=== PATIENT | male | born 1950 | race African-American/Black ===

== ENCOUNTER 2017-03-05 11:39 | Inpatient (IN) | payer MEDICARE, OTHER ==
[2017-03-05] MEDS ORDERED: ALBUTEROL SULFATE 2.5 MG/3 ML VIAL.NEB IH ONE (12:29)
[2017-03-05] MEDS ORDERED: ALBUTEROL SULFATE 2.5 MG/0.5 ML VIAL.NEB IH ONE (12:32)
--- NOTE | 2017-03-05 12:40 | ERNOTE ---
Medical Problem HPI - General Chief Complaint: General Assessment Time Seen by Provider: 03/05/17 12:15 Source: patient, family Exam Limitations: no limitations - Immun/Allergies/Home Medications Immunizations: IMMUNIZATION HX Immunizations Up to Date Yes History of Influenza Vaccine Yes Hx Pneumococcal Vaccination Yes Allergies/Adverse Reactions: Allergies No Known Allergies Allergy (Verified 02/25/16 05:20) Home Medications: HOME MEDICATIONS Atorvastatin Calcium 80 mg PO HS 10/19/15 [Last Taken Unknown] Etodolac [Etodolac (Lodine)] 500 mg PO BID 10/19/15 [Last Taken Unknown] Gabapentin [Neurontin] 300 mg PO BID 10/19/15 [Last Taken Unknown] Prazosin HCl [Minipress] 5 mg PO HS 10/19/15 [Last Taken Unknown] Sertraline HCl [Zoloft] 100 mg PO BID 10/19/15 [Last Taken Unknown] metFORMIN HCL [Glucophage] 500 mg PO BIDWM 10/19/15 [Last Taken Unknown] traZODone HCL [Trazodone HCl] 300 mg PO HS PRN 10/19/15 [Last Taken Unknown] Doxycycline Monohydrate 100 mg PO BID 02/25/16 [Last Taken Unknown] Hydroxychloroquine Sulfate [Plaquenil] 200 mg PO BID 02/25/16 [Last Taken Unknown] - History of Present History Narrative: Patient is here for fever and confusion. Over the last month patient was inpatient at a [place] mental facility for [facility]. While there about five days ago he started to develop a fever up to 102, was confused and fell once. The requested treatment and evaluation and he was started on levaquin and taken to the [place] ER two days ago and had test done which the told were normal. He also had intermittent vomiting and diarrhea. Yesterday he was discharged home. The patient was diagnosed with Non Hodgkins lymphome in 12/2015 and treated with five months of chemo, also has diagnosis of chronic viral infections, has been admitted here for multiple UTI's - Patient's Past Medical History Patient History - Medical: Anxiety, Diabetes Type 2, Depression, Obesity Patient History - Cardiac/Respiratory: No pertinent hx Patient History - Cancer: Non Hodgkins Lymphoma Patient History - Surgical Procedures: Other Patient History - Other: None - Family History Mother Family History - Medical: Father Family History - Medical: No pertinent hx Family History - Cardiac/Respiratory: No pertinent hx Sister Family History - Medical: No pertinent hx Family History - Cardiac/Respiratory: No pertinent hx Brother Family History - Medical: Family History - Cardiac/Respiratory: Myocardial Infarction - Social History Living Situations: spouse Abuse History: No History of abuse Psych History: Hx of Anxiety, Hx of Depression Alcohol Use: none Drug Use: none - Immunizations Immunizations Up to Date: Yes Hx Pneumococcal Vaccination: Yes History of Influenza Vaccine: Yes Physical Exam - Physical Exam General Appearance: Present: wd/wn, alert, no apparent distress, obese Eye Exam: Normal inspection: bilateral, PERRL: bilateral Ears, Nose, Throat: Present: normal ENT inspection, normal pharynx Neck: Present: normal inspection, nontender, supple Respiratory: Present: no respiratory distress, no accessory muscle use, chest nontender, decreased breath sounds - slightly, wheezing - few Cardiovascular/Chest: Present: regular rate, rhythm, no murmur Gastrointestinal/Abdominal: Present: normal bowel sounds, nontender, nondistended, soft Extremity Exam: Present: no edema Neurological Exam: Present: alert, oriented, normal mood/affect, no motor/ sensory deficits Skin Exam: Present: normal color, warm/dry ED Progress - Results and Orders Patient's Lab Results:: I have reviewed the patient's lab results. - Vital Signs Patient's Vital Signs:: I have reviewed the patient's vital signs. Vital Signs: Vital Signs 03/05/17 03/05/17 11:57 12:25 Temperature 36.7 C 36.8 C Pulse Rate 107 H 98 Respiratory 16 17 Rate Blood Pressure 124/69 133/88 O2 Sat by Pulse 87 L 92 Oximetry - EKG EKG: NSR, other - no acute findings EKG read: Interp. by me - X-Ray X-Ray #1 X-Ray: chest - no acute changes Interpretation: Reviewed by me - CT/Ultrasound CT/Ultrasound Narrative: CT head: ethmoid disease, no acute findings CT chest: no PE - Progress/Reassessment Chief Complaint: General Assessment Progress Note-Subjective: 03/05/17 15:45 discussed results with patient and family patient 92% on 4liters O2, when o2 is taken off O2 sat down to 83% discussed admission for UTI and hypoxemia 03/05/17 16:31 explained positive d-dimer, will get CT chest 03/05/17 19:13 discussed with Jalyn Mann (NRP) okay to admit, 03/05/17 19:25 discussed results with patient Departure - Departure Clinical Impression: Hypoxemia UTI (urinary tract infection) Qualifiers: Urinary tract infection type: site unspecified Hematuria presence: without hematuria Qualified Code(s): N39.0 - Urinary tract infection, site not specified Obesity Qualifiers: Obesity type: unspecified obesity type Obesity severity: morbid Qualified Code( s): E66.01 - Morbid (severe) obesity due to excess calories Mental status change Qualifiers: Altered mental status type: unspecified Qualified Code(s): R41.82 - Altered mental status, unspecified Disposition: [facility] Condition: Fair
[2017-03-05 12:51] LABS: Hematocrit 44.9 % (42.0-52.0); Mean Cell Volume 87.4 fl (78-100); Mean Corpuscular Hemoglobin 29.2 pg (27-31); Mean Corpuscular Hgb Conc 33.4 g/dl (32-36); Mean Platelet Volume 9.1 fl (6.0-9.5); Neutrophil # 3.4 K/mm3 (1.3-6.0); Neutrophil % 71.8 % (42-75.0); Platelet Count 115 K/mm3 (150-450); Red Blood Count 5.14 M/mm3 (4.7-6.0); Red Cell Distribution Width 13.1 % (11.5-14.0); White Blood Count 4.7 K/mm3 (4.0-10.5)
--- OUTSIDE RECORDS SUMMARY | 2017-03-05 13:08 | XMS REPORT | Continuity of Care Document ---
:1950 Demographics Phone Unavailable Preferred Language Unknown Marital Status Unknown Lutheran Affiliation Unknown Race Unknown Ethnic Group Unknown Author Organization [facility] ([facility]) Address [place] [address] Phone [phone] Care Team Providers Name Role Phone Unavailable Primary Care Provider Unavailable Source Comments This disclosure is being made pursuant to the Care Everywhere program, applicable federal and state laws, and may not contain all informaitonavailable regarding this patient.[facility] ([facility]) Active Allergies and Adverse Reactions Not on File Current Medications Not on file Active Problems Not on file Social History Tobacco Use Types Packs/Day Years Used Date Never Assessed Plan of Care Health Maintenance Due Date Last Done Comments HCV Screening 1950 Hepatitis B Vaccine (1 of 3 - Primary Series) 1950 Tdap Vaccine 1962 Lipid Disorder Screening 1969 Td Vaccine 1969 Colonoscopy 09/11/2001 Prostate Cancer Screening 2001 Zoster Vaccine 2011 Influenza Vaccine: Seasonal (#1) 07/01/2016 Pneumococcal Vaccine (1 of 2 - PCV13) 2016 Results from Last 3 Months Not on file
[2017-03-05 13:11] LABS: Troponin I 0.034 ng/ml (0.00-0.10)
[2017-03-05 13:14] LABS: Anion Gap 12.3 mmol/L (6.8-13.8); BUN/Creatinine Ratio 23.8 (9.0-21.6); Bilirubin, Total 0.3 mg/dL (0.0-1.1); Ca. Corrected For Albumin 8.9 mg/dL (8.4-10.2); Calcium * 8.4 mg/dL (7.9-10.9); Carbon Dioxide 27.1 mmol/L (24-32.6); Potassium 4.4 mmol/L (3.4-4.6); Total Protein 7.1 gm/dL (6.2-8.2)
[2017-03-05 15:10] LABS: Urine Bilirubin Negative (NEGATIVE); Urine Blood 250 /ul (NEGATIVE); Urine Ketone Negative (NEGATIVE); Urine Nitrite Negative (NEGATIVE); Urine Protein >=300 mg/dL (NEGATIVE); Urine Specific Gravity >=1.030 SP.GR. (1.005-1.030); Urine Urobilinogen Normal (NORMAL); Urine pH 5.5 pH (5.0-7.0)
[2017-03-05 15:28] LABS: Urine Appearance Slightly Cloudy; Urine Color Dark Yellow
[2017-03-05 15:29] LABS: Urine Bacteria 1+
--- OUTSIDE RECORDS SUMMARY | 2017-03-05 16:18 | XMS REPORT | Continuity of Care Document ---
:1950 Demographics Phone Unavailable Preferred Language Unknown Marital Status Unknown Mandaen Affiliation Unknown Race Unknown Ethnic Group Unknown Author Organization [facility] ([facility]) [place] [address] Phone [phone] Care Team Providers Name Role Phone Unavailable Primary Care Provider Unavailable Source Comments This disclosure is being made pursuant to the Care Everywhere program, applicable federal and state laws, and may not contain all informaitonavailable regarding this patient.[facility] ([facility]) Active Allergies and Adverse Reactions Not on [...]
--- OUTSIDE RECORDS SUMMARY | 2017-03-05 19:31 | XMS REPORT | Continuity of Care Document ---
:1950 Demographics Phone Unavailable Preferred Language Unknown Marital Status Unknown Sabianism Affiliation Unknown Race Unknown Ethnic Group Unknown Author Organization [facility] ([facility]) [place] [address] Phone [phone] Care Team Providers Name Role Phone Unavailable Primary Care Provider Unavailable Source Comments This disclosure is being made pursuant to the Care Everywhere program, applicable federal and state laws, and may not contain all informaitonavailable regarding this patient.[facility] ([facility]) Active Allergies and Adverse Reactions Not on [...]
[2017-03-05] MEDS ORDERED: ALBUTEROL SULFATE/IPRATROPIUM 3 ML NEBU IH PRN (21:23)
--- NOTE | 2017-03-05 21:27 | HP ---
Chief Complaint - Chief Complaint Date of Service: 03/05/17 Time of Service: 21:23 Chief Complaint: confusion History of Present Illness: Pt is a 66 year old male with a PMH significant for UTI, nonHodgkin lymphoma, PTSD, morbid obesity, Pt presented to the ER this evening with complaints of fever and confusion. Over the last month patient was inpatient at a [place] mental facility for PTSD. On 02/28 started fever up to 102*F and URI symptoms, he was also confused and fell once. He was started on Levaquin for presumed pneumonia. Friday was transferred to the ER for medical evaluation. Per his he has also had intermittent vomiting and diarrhea. Yesterday 03/04/17, he was discharged home. Flu screen was negative. Of note the patient was diagnosed with Non Hodgkins lymphoma in 12/2015 and treated with five months of chemo as well as has had Q virus and Bartonelis. Per pt was home for less than 12 hours had poor appetite, seemed "out of it", dizzy, more lethargic than normal. Pt has not had any of his medications since yesterday morning as they were not given to them at discharge. In the ER work up revealed: D-dimer was elevated, CT Chest was completed per protocol which was negative for PE, RUL and bilateral lower lobe atelectisis vs PN present.All other lab work was essentially negative. Pt was also found to be hypoxic at 83% on RA, following an albuterol breathing treatment pt was still noted to be hypoxic at 85%, he was placed on O2 and this quickly resolved. Pt will be admitted to observation for further work up and treatment of lethargy, hypoxia with presumed PN and UTI. - Patient's Past Medical History Patient History - Medical: Anxiety, Diabetes Type 2, Depression, Obesity, Osteoarthritis Patient History - Cardiac/Respiratory: No pertinent hx, Pneumonia, CPAP/BiPAP Home Use, Sleep Apnea Patient History - Cancer: Non Hodgkins Lymphoma Patient History - Surgical Procedures: No surgical history Patient History - Other: Chronic/Prophylactic ABX - Family History Mother Family History - Medical: Family History - Cancer: Bone Father Family History - Medical: No pertinent hx Family History - Cardiac/Respiratory: No pertinent hx Sister Family History - Medical: No pertinent hx Family History - Cardiac/Respiratory: No pertinent hx Family History - Cancer: Bone, Lung Brother Family History - Medical: Family History - Cardiac/Respiratory: Myocardial Infarction Family History - Cancer: Lung - Social History Living Situations: spouse Abuse History: No History of abuse Psych History: Hx of Anxiety, Hx of Depression, Hx of Psychiatric Tx Smoking Status: Former smoker Have you smoked in the past 12 months: Yes Do you dip or chew tobacco: No Smoking Stop Date: 02/17/17 Patient requests Smoking Cessation Consult: No Initiate information on Smoking Cessation: No Alcohol Use: none Drug Use: none - Immunizations Immunizations Up to Date: Yes Hx Pneumococcal Vaccination: Yes History of Influenza Vaccine: Yes Review Of Systems (GEN) - Review of Systems Generalized/Overall Review: Present: Weakness, Fatigue EENTM: Present: No Symptoms Reported Respiratory: Present: Cough, Shortness of Breath Cardiac: Present: No Symptoms Reported Abdominal: Present: Nausea, Diarrhea Genitourinary: Present: No Symptoms Reported Musculoskeletal: Present: No Symptoms Reported Neurological: Present: No Symptoms Reported Skin: Present: No Symptoms Reported Immunizations: IMMUNIZATION HX Immunizations Up to Date Yes History of Influenza Vaccine Yes Hx Pneumococcal Vaccination Yes Allergies/Adverse Reactions: Allergies Allergy/AdvReac Type Severity Reaction Status Date / Time No Known Allergies Allergy Verified 02/25/16 05:20 Home Medications: HOME MEDICATIONS Atorvastatin Calcium 80 mg PO HS 10/19/15 [Last Taken Unknown] Sertraline HCl [Zoloft] 100 mg PO BID 10/19/15 [Last Taken Unknown] metFORMIN HCL [Glucophage] 500 mg PO BIDWM 10/19/15 [Last Taken Unknown] traZODone HCL [Trazodone HCl] 300 mg PO HS PRN 10/19/15 [Last Taken Unknown] Hydroxychloroquine Sulfate [Plaquenil] 200 mg PO BID 02/25/16 [Last Taken Unknown] Doxycycline Hyclate [Morgidox] 100 mg PO BID 03/05/17 [Last Taken Unknown] Ergocalciferol [Calciferol] 50,000 units PO Q7D 03/05/17 [Last Taken Unknown] Meloxicam [Mobic] 15 mg PO DAILY 03/05/17 [Last Taken Unknown] Oxybutynin Chloride [Ditropan] 5 mg PO BID 03/05/17 [Last Taken Unknown] Tamsulosin HCl [Flomax] 0.4 mg PO DAILY 03/05/17 [Last Taken Unknown] hydrOXYzine HCL [Atarax] 25 mg PO BID PRN 03/05/17 [Last Taken Unknown] Exam - Exam Vital Signs: Vital Signs - Last Taken Temp 36.9 C 03/05/17 20:00 Pulse 97 03/05/17 20:00 Resp 20 03/05/17 20:00 BP 129/82 03/05/17 20:00 Pulse Ox 92 3L 03/05/17 20:00 Constitutional: Present: Alert, Oriented x3, Cooperative, Lethargic - pt drifts back to sleep quickly however will awaken and is appropriately oriented upon questioning., Morbidly obese ENT Exam: Present: normal ENT inspection Eye Exam: bilateral eye: normal inspection, PERRL Respiratory: Present: chest non-tender, no respiratory distress, decreased breath sounds, wheezing Cardiovascular/Chest: Present: normal peripheral pulses, regular rate, rhythm, no chest tenderness, no edema, no murmur Peripheral Pulses: dorsalis-pedis (R): 2+, dorsalis-pedis (L): 2+, radial (R): 2 +, radial (L): 2+ Abdomen: Present: Normal bowel sounds, soft, nontender, nondistended, obese Extremity: Present: normal range of motion, non-tender, normal inspection, no pedal edema, no calf tenderness, normal capillary refill Skin Exam: Present: normal color, warm/dry, no cyanosis Neurologic: Present: alert, normal mood/affect, oriented x 3 Appearance: Present: appropriate appearance, appropriate insight, neat Eye contact: Present: cooperative, good eye contact, normal speech Thoughts: Present: normal thought pattern, no apparent hallucination Diagnostic Studies: Laboratory Results Laboratory Tests 03/05/17 03/05/17 03/05/17 12:42 12:45 12:45 WBC 4.7 Hgb 15.0 Hct 44.9 Plt Count 115 L Neutrophils % 71.8 D-Dimer 2.54 H Sodium 138 Potassium 4.4 D Anion Gap 12.3 BUN 19 Creatinine 0.80 Lactic Acid, Venous Total Bilirubin 0.3 AST 106 H ALT 49 Alkaline Phosphatase 61 Troponin I 0.034 B-Natriuretic Peptide 155 Urine Nitrate Ur Leukocyte Esterase Urine Bacteria 03/05/17 03/05/17 12:45 15:04 WBC Hgb Hct Plt Count Neutrophils % D-Dimer Sodium Potassium Anion Gap BUN Creatinine Lactic Acid, Venous 0.9 Total Bilirubin AST ALT Alkaline Phosphatase Troponin I B-Natriuretic Peptide Urine Nitrate Negative Ur Leukocyte Esterase Negative Urine Bacteria 1+ H Assessment/Plan - Assessment/Plan (1) Hypoxemia Assessment: Possibly due to a combination of morbid obesity and sleep apnea. Will continue cpap at home settings. Place on continuous pulse ox over night. Obtain baseline ABG, may want to repeat in the am following being placed on CPAP if abnormal. -CPAP at night -Supplemental O2 to maintain stats >90% -Continuous pulse ox -ABG now -Duoneb treatments PRN Problem: Acute (2) Lethargy Assessment: Not clear etiology at this time. Could be from questionable PN seen on CT scan, however due to body habitus, likely atelectisis. Will need to obtain medical records from [place] in the am. Will check ABG to see if retaining Co2 as well as an ammonia level. -ABG -Obtain medical records from [place] -Ammonia level Problem: Acute (3) UTI (urinary tract infection) Assessment: UA with +1 bacteria present. Culture pending. Last urine grew ecoli, will start on IV Rocephin, will also cover for PN. Problem: Acute Qualifiers: Urinary tract infection type: site unspecified Hematuria presence: without hematuria Qualified Code(s): N39.0 - Urinary tract infection, site not specified (4) Obesity Problem: Acute Qualifiers: Obesity type: unspecified obesity type Obesity severity: morbid Qualified Code(s): E66.01 - Morbid (severe) obesity due to excess calories (5) Sleep apnea Assessment: Place on CPAP at home settings -CPAP at night Problem: Acute (6) Diabetes type 2, controlled Assessment: Stable at this time. Consistent carb diet, continue Metformin. Blood glucose checks ac/hs. -Accu checks ac/hs -Continue Metformin Problem: Chronic
[2017-03-06] MEDS: NORMAL SALINE 1,000 ML IV PRN ×3 (01:33→15:10)
[2017-03-06 05:45] LABS: Hemoglobin 14.4 gm/dL (13.5-18.0); Mean Cell Volume 88.3 fl (78-100); Mean Corpuscular Hemoglobin 29.6 pg (27-31); Mean Corpuscular Hgb Conc 33.5 g/dl (32-36); Mean Platelet Volume 10.1 fl (6.0-9.5); Platelet Count 103 K/mm3 (150-450); Red Blood Count 4.87 M/mm3 (4.7-6.0); White Blood Count 3.7 K/mm3 (4.0-10.5)
[2017-03-06 06:04] LABS: Total Cells Counted 100
[2017-03-06 06:05] LABS: Albumin * 2.7 gm/dl (3.4-5.0); Anion Gap 9.1 mmol/L (6.8-13.8); BUN/Creatinine Ratio 22.2 (9.0-21.6); Bilirubin, Total 0.4 mg/dL (0.0-1.1); Ca. Corrected For Albumin 8.7 mg/dL (8.4-10.2); Carbon Dioxide 31.1 mmol/L (24-32.6); Potassium 4.2 mmol/L (3.4-4.6); Total Protein 6.7 gm/dL (6.2-8.2)
[2017-03-06 06:22] LABS: Band 16 % (0-2.0); Lymphocyte 27 % (20-51); Monocyte 11 % (0-9); Neutrophil 46 % (42-75); Neutrophil # 1.7 K/mm3 (1.3-6.0); Platelet Estimate Normal (NORMAL)
[2017-03-06 06:23] LABS: Dohle Bodies 2+
[2017-03-06] MEDS ORDERED: ERGOCALCIFEROL 50000 UNIT TABLET PO SCH (09:00)
[2017-03-06] MEDS ORDERED: metFORMIN HCL 500 MG TABLET PO SCH (09:00)
[2017-03-06] MEDS ORDERED: TAMSULOSIN HCL 0.4 MG CAP.SR.24H PO SCH (09:00)
[2017-03-06] MEDS ORDERED: DOXYCYCLINE HYCLATE 100 MG TABLET PO SCH (09:00)
[2017-03-06] MEDS: OXYBUTYNIN CHLORIDE 5 MG TABLET PO SCH ×2 (09:25→20:42)
[2017-03-06] MEDS: MELOXICAM 15 MG TABLET PO SCH (09:25)
[2017-03-06] MEDS: SERTRALINE HCL 100 MG TABLET PO SCH ×2 (09:26→20:43)
[2017-03-06] MEDS: HYDROXYCHLOROQUINE SULFATE 200 MG TABLET PO SCH ×2 (09:26→20:42)
[2017-03-06] MEDS ORDERED: ONDANSETRON HCL/PF 2 MG/ML VIAL IV ONE (10:00)
[2017-03-06 10:29] LABS: Troponin I 0.062 ng/ml (0.00-0.10)
[2017-03-06] MEDS ORDERED: VANCOMYCIN HCL 2 GM in DEXTROSE 5 % IN WATER 500 ML IV ONE ×2 (11:30)
[2017-03-06] MEDS: LEVOFLOXACIN/D5W 750 MG in Premix Bag 1 BAG IV SCH (11:42)
[2017-03-06] MEDS: CEFEPIME HCL 2 GM in DEXTROSE 5 % IN WATER 100 ML IV SCH ×4 (11:51→22:40)
[2017-03-06] MEDS: SACCHAROMYCES BOULARDII 250 MG CAPSULE PO SCH ×2 (12:03→20:42)
[2017-03-06] MEDS: INSULIN REGULAR, HUMAN 100 UNITS/ML VIAL SC SCH ×3 (12:03→20:50)
[2017-03-06] MEDS ORDERED: NOREPINEPHRINE BITARTRATE 4 MG in DEXTROSE 5 % IN WATER 496 ML IV PRN ×2 (12:56)
[2017-03-06] MEDS: METHYLPREDNISOLONE SOD SUCC 60 MG in WATER FOR INJ.,BACTERIOSTATIC 0 ML IV SCH ×2 (16:42→22:37)
--- NOTE | 2017-03-06 18:15 | PN ---
Subjective - Date and Time Seen Date: 03/06/17 Time: 09:55 Subjective Narrative: Reed is a 66 year old male with a UTI, non-Hodgkin lymphoma with previous chemo 12/2015 for 5 months, morbid obesity, retirement prior smoker that quit 02/17, chronic Q fever and hx of sub-acute endocarditis that presented to the ER on 03/05/17 with c/o fever and confusion. fever up to 102. In the ER, pt was found to be 83% on RA - placed on 4L via NC - sats 94%. CT of the chest was done, which was negative for PE, but positive for pneumonia in the RUL, RLL and RLL vs atelectasis. pt admitted for respiratory failure, pneumonia, uti and further observation. ammonia level was checked and was wnl. c diff pending. abg unremarkable. pt was started on iv rocephin in the ER. Upon assessment this am at 0955, wbc decrease from wnl to low at 3.7. pt now has 16% bands. duoneb scheduled at [facility] 4 hours. premlim urine cult is neg. still on 4 liter via nc. ns at 100 ml/hr. heart tones very faint. pt denies cp and states mild dyspnea. given leukocytosis, lactic acid, procalcitonin, 2 set blood cultures and bnp were ordered. due to recent fevers of 102 rapid influenza was also ordered. [facility] dr. quiroz - changed abx to iv cefepine, iv levaquin. also added a 1 time dose of iv vanco. sputum culture ordered as well. Around 1230, went to reassess the patient, and bp in room showed sbp of 88 - ordered levophed drip to titrate to sbp >90. recheck of bp showed sbp 105 so levophed gtt was held and pharmacy was notified to hold gtt in case it was needed later. I also verbally ordered transfer to the scu but once bp was found to be higher I indicated that this was not needed since the levophed gtt was not needed. in addition, heart tones still faint so bedside echo was ordered. ekg was also done and was wnl. at this time, i was also notified that indicates pt is becoming more lethargic. pt indicates to me that he is become more short of breath. repeat abg show rise in co2 level. thus, bipap was ordered. prelim echo from dr quiroz shows no pericardial effusion and ef 45-50% but echo is hard to read due to pt's body habitus. Objective - Review of Systems Generalized/Overall Review: Reports: Weakness, Fatigue Respiratory: Reports: Shortness of Breath, Wheezing Abdominal: Reports: No Symptoms Reported Genitourinary Symptoms: Reports: No Symptoms Reported Musculoskeletal Complaints: Reports: No Symptoms Reported Neurological: Reports: Emotional Problems, Weakness Skin: Reports: No Symptoms Reported Endocrine: Reports: No Symptoms Reported Misc: All systems neg except as marked - Vitals Vitals: Last Vital Signs Temp 37.1 C 03/06/17 08:54 Pulse 90 03/06/17 13:00 Resp 20 03/06/17 14:00 BP 101/54 03/06/17 13:00 Pulse Ox 100 03/06/17 14:00 - Abnormal Lab Findings Abnormal Lab Findings: Abnormal Lab Results 03/06/17 Range/Units 14:55 pO2 64.6 L (83.0-108.0) mmHg Total CO2 26.9 H (19.0-24.0) mmol/L ABG O2 Sat (Measured) 92.5 L (94.0-98.0) % - EKG/Xray Findings EKG: NSR, nonspecific ST T wave chg EKG read: Interp. by me - Exam Constitutional: Present: Alert, Cooperative, Moderate distress, Lethargic, Morbidly obese ENT Exam: Present: hearing grossly normal, moist mucous membranes Neck: Present: full range of motion, supple Breasts: Present: Exam deferred Respiratory: Present: chest non-tender, respiratory distress, rhonchi, wheezing , expiration (prolonged) Cardiovascular/Chest: Present: no chest tenderness, other - faint heart tones, unable to detect if there is a murmur or not. Abdomen: Present: soft, nontender, nondistended, obese - very large abdomen /Rectal: Present: Exam deferred Extremity: Present: non-tender, normal inspection Skin Exam: Present: normal color, warm/dry, no cyanosis Neurologic: Present: alert. Absent: aphasia, facial droop Assessment/Plan - Problems/Diagnosis (1) Respiratory failure Problem: Acute Qualifiers: Chronicity: acute Respiratory failure complication: hypoxia Qualified Code(s): J96.01 - Acute respiratory failure with hypoxia Narrative: dropped to 83% in ra in ER. sats 94% on 4l nc on unit. unable to wean as pt starts to become very dyspenic when talking. likely causes for respiratory failure including combination of pneumonia, copd exac and acute systolic heart failure. echo shows ef of 45-50% and pt has no known history of heart failure in the past. report recent weight gain. no lower extremity edema and bnp normal but mildly elevated JVD noted. unable to obtain RVSP on echo due to pt' s body habitus. cpap /bipap per RT ventilator protocol. monitor abg and monitor for lethargy. cont pulse ox monitoring. cont scheduled duoneb treatments. (2) Leukocytosis Problem: Acute Qualifiers: Leukocytosis type: bandemia Qualified Code(s): D72.825 - Bandemia Narrative: likely due to pneumonia. UTI also suspected and culture is pending. pt currently on cefepime, levaquin and vanco. blood cultures also pending. sputum culture ordered and c diff sample ordered. check labs in the am and await final cultures. 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 wheezing and rhonchi persist in lung despite schedule duonebs. will add iv steroids. pt will need outpatient complete PFT. on cont O2 - watch sats closely. CO2 levels not critical but have trended up over the course of the day - cont bipap or cpap with O2 as needed per RT protocol. ABG per RT ventilator protocol. cont scheduled duonebs. (4) Hypoxemia Problem: Acute (5) Lethargy Problem: Acute (6) Obesity Problem: Chronic Qualifiers: Obesity type: unspecified obesity type Obesity severity: morbid Qualified Code(s): E66.01 - Morbid (severe) obesity due to excess calories (7) Sleep apnea Problem: Chronic Qualifiers: Sleep apnea type: unspecified type Qualified Code(s): G47.30 - Sleep apnea , unspecified (8) UTI (urinary tract infection) Problem: Acute Qualifiers: Urinary tract infection type: site unspecified Hematuria presence: without hematuria Qualified Code(s): N39.0 - Urinary tract infection, site not specified Narrative: urine culture currently pending and negative for any growth at this time. currently on iv cefepime, iv levaquin and one dose of iv vanco which will more than cover a UTI. await final culture results. (9) Diabetes type 2, controlled Problem: Chronic Qualifiers: Diabetes mellitus complication status: with unspecified complications Diabetes mellitus watermelon harvesting supervisor insulin use: without retirement use Qualified Code( s): E11.8 - Type 2 diabetes mellitus with unspecified complications Narrative: blood sugars currently controlled. checking ac/hs. sliding scale insulin as needed. held metformin today while checking to see if patient had elevated lactic acid as this can also elevate the lactic acid. may possibly restart in the am if patient continue to improve overnight. (10) Pneumonia Problem: Acute Qualifiers: Pneumonia type: due to unspecified organism Laterality: unspecified laterality Lung location: unspecified part of lung Qualified Code(s): J18.9 - Pneumonia, unspecified organism Narrative: Chest ct showed multi lobe pneumonia vs atelectsis. given severe hypoxemia / respiratory failure, unlikely to be atelectasis, especially in light of bandemia that was indicated on cbc this am. it is more likely that pt has multi lobular pneumonia. pt also has risk factors for drug resistant organism due to recent admission in inpatient unit, history of chemo within the last year , history of chronic q fever. sputum culture pending. will need to watch O2 sats closely. check labs in the am. (11) CHF (congestive heart failure) Problem: Acute Qualifiers: Congestive heart failure type: systolic Congestive heart failure chronicity : acute Qualified Code(s): I50.21 - Acute systolic (congestive) heart failure Narrative: no history of heart failure diagnosis in the past. bnp not elevated currently but does have a mildly elevated JVD and weight gain. IV fluids were decreased today to present further exacerbation. pt in mild systolic chf exacerbation but will see how patient does overnight, especially with his blood pressures running on the lower end, before ordering any lasix. monitor strict I&Os, monitor daily weights. pt will need chf teaching prior to discharge.
[2017-03-06] MEDS: TAMSULOSIN HCL 0.4 MG CAP.SR.24H PO SCH (20:41)
[2017-03-06] MEDS: ROSUVASTATIN CALCIUM 10 MG TABLET PO SCH (20:41)
[2017-03-06] MEDS ORDERED: ATORVASTATIN CALCIUM 40 MG TABLET PO SCH (21:00)
[2017-03-07] MEDS: METHYLPREDNISOLONE SOD SUCC 60 MG in WATER FOR INJ.,BACTERIOSTATIC 0 ML IV SCH ×4 (03:15→21:16)
[2017-03-07] MEDS: INSULIN REGULAR, HUMAN 100 UNITS/ML VIAL SC SCH ×4 (06:59→21:12)
[2017-03-07 07:58] LABS: Hemoglobin 14.1 gm/dL (13.5-18.0); Mean Cell Volume 86.6 fl (78-100); Mean Corpuscular Hemoglobin 29.1 pg (27-31); Mean Corpuscular Hgb Conc 33.6 g/dl (32-36); Mean Platelet Volume 9.5 fl (6.0-9.5); Neutrophil % 82.2 % (42-75.0); Platelet Count 133 K/mm3 (150-450); Red Blood Count 4.85 M/mm3 (4.7-6.0); Red Cell Distribution Width 12.7 % (11.5-14.0); White Blood Count 3.6 K/mm3 (4.0-10.5)
[2017-03-07 08:18] LABS: Albumin * 2.6 gm/dl (3.4-5.0); Anion Gap 11.6 mmol/L (6.8-13.8); BUN/Creatinine Ratio 24.7 (9.0-21.6); Bilirubin, Total 0.4 mg/dL (0.0-1.1); Ca. Corrected For Albumin 8.7 mg/dL (8.4-10.2); Calcium * 7.9 mg/dL (7.9-10.9); Carbon Dioxide 27.8 mmol/L (24-32.6); Potassium 4.4 mmol/L (3.4-4.6); Total Protein 6.7 gm/dL (6.2-8.2)
[2017-03-07] MEDS: HYDROXYCHLOROQUINE SULFATE 200 MG TABLET PO SCH ×2 (08:55→21:01)
[2017-03-07] MEDS: SACCHAROMYCES BOULARDII 250 MG CAPSULE PO SCH ×2 (08:55→21:00)
[2017-03-07] MEDS: OXYBUTYNIN CHLORIDE 5 MG TABLET PO SCH ×2 (08:55→21:00)
[2017-03-07] MEDS: MELOXICAM 15 MG TABLET PO SCH (08:55)
[2017-03-07] MEDS: SERTRALINE HCL 100 MG TABLET PO SCH ×2 (08:55→21:01)
[2017-03-07] MEDS: ALBUTEROL SULFATE/IPRATROPIUM 3 ML NEBU IH SCH ×3 (10:13→18:11)
[2017-03-07] MEDS: LEVOFLOXACIN/D5W 750 MG in Premix Bag 1 BAG IV SCH (10:29)
--- NOTE | 2017-03-07 11:30 | ECHO ---
This report is available in the EMR
[2017-03-07] MEDS ORDERED: FUROSEMIDE 10 MG/ML VIAL IV ONE (11:41)
[2017-03-07] MEDS: CEFEPIME HCL 2 GM in DEXTROSE 5 % IN WATER 100 ML IV SCH ×4 (12:38→22:11)
[2017-03-07] MEDS: VANCOMYCIN HCL 2 GM in DEXTROSE 5 % IN WATER 500 ML IV SCH ×4 (13:07→23:36)
[2017-03-07] MEDS: ENOXAPARIN SODIUM 40 MG/0.4 ML SYRG SC SCH (17:01)
[2017-03-07] MEDS: TAMSULOSIN HCL 0.4 MG CAP.SR.24H PO SCH (18:27)
--- NOTE | 2017-03-07 19:44 | PN ---
Subjective - Date and Time Seen Date: 03/07/17 Time: 17:20 Subjective Narrative: Reed is a 66 year old male with a UTI, non-Hodgkin lymphoma with previous chemo 12/2015 for 5 months, morbid obesity, snf prior smoker that quit 02/17, chronic Q fever and hx of sub-acute endocarditis that presented to the ER on 03/05/17 with c/o fever and confusion. fever up to 102. In the ER, pt was found to be 83% on RA - placed on 4L via NC - sats 94%. CT of the chest was done, which was negative for PE, but positive for pneumonia in the RUL, RLL and RLL vs atelectasis. pt admitted for respiratory failure, pneumonia, uti and further observation. ammonia level was checked and was wnl. c diff pending. abg unremarkable. pt was started on iv rocephin in the ER. Upon assessment this am at 0955, wbc decrease from wnl to low at 3.7. pt now has 16% bands. duoneb scheduled at [facility] 4 hours. premlim urine cult is neg. still on 4 liter via nc. ns at 100 ml/hr. heart tones very faint. pt denies cp and states mild dyspnea. given leukocytosis, lactic acid, procalcitonin, 2 set blood cultures and bnp were ordered. due to recent fevers of 102 rapid influenza was also ordered. [facility] with dr. quiroz - changed abx to iv cefepine, iv levaquin. also added a 1 time dose of iv vanco. sputum culture ordered as well. Around 1230, went to reassess the patient, and bp in room showed sbp of 88 - ordered levophed drip to titrate to sbp >90. recheck of bp showed sbp 105 so levophed gtt was held and pharmacy was notified to hold gtt in case it was needed later. I also verbally ordered transfer to the scu but once bp was found to be higher I indicated that this was not needed since the levophed gtt was not needed. in addition, heart tones still faint so bedside echo was ordered. ekg was also done and was wnl. at this time, i was also notified that indicates pt is becoming more lethargic. pt indicates to me that he is become more short of breath. repeat abg show rise in co2 level. thus, bipap was ordered. prelim echo from dr quiroz shows no pericardial effusion and ef 45-50% but echo is hard to read due to pt's body habitus. on 03/07/17 - overnight has improved. wbc stable. neutrophils 82. liver panel mildly elevated. weight up 1 kg in 24 hours. c diff neg. o2 needs less - clinically looks better than yesterday. currently on cefepime, levaquin iv. pt states he feels better than yesterday. Objective - Review of Systems Generalized/Overall Review: Reports: Fatigue EENTM: Reports: No Symptoms Reported Respiratory: Reports: Shortness of Breath Cardiac: Reports: No Symptoms Reported Abdominal: Reports: No Symptoms Reported Genitourinary Symptoms: Reports: No Symptoms Reported Musculoskeletal Complaints: Reports: No Symptoms Reported Neurological: Reports: No Symptoms Reported Skin: Reports: No Symptoms Reported Endocrine: Reports: No Symptoms Reported Misc: All systems neg except as marked - Vitals Vitals: Last Vital Signs Temp 35.9 C L 03/07/17 15:06 Pulse 77 03/07/17 18:21 Resp 18 03/07/17 18:21 BP 118/59 03/07/17 15:06 Pulse Ox 93 03/07/17 18:11 - Abnormal Lab Findings Abnormal Lab Findings: Abnormal Lab Results 03/07/17 03/07/17 03/07/17 Range/Units 07:50 07:50 07:50 WBC 3.6 L (4.0-10.5) K/mm3 Plt Count 133 L (150-450) K/mm3 Immature Gran % (Auto) 0.80 H (0.001-0.429) % Neutrophils % 82.2 H (42-75.0) % Lymphocytes % 12.5 L (20-51) % Lymphocytes # 0.5 L (1.5-3.5) k/mm3 Est GFR (Non-Af Amer) 139 H (60-130) mL/min BUN/Creatinine Ratio 24.7 H (9.0-21.6) Random Glucose 153 H D (70-110) mg/dL AST 178 H (0-48) U/L ALT 75 H (19-67) U/L Alkaline Phosphatase 47 L (50-170) U/L Albumin 2.6 L (3.4-5.0) gm/dl Procalcitonin Less than 0.05 L (0.05-0.50) ng/mL - Exam Constitutional: Present: Alert, Oriented x3, Cooperative, No distress ENT Exam: Present: hearing grossly normal Neck: Present: supple, normal inspection Respiratory: Present: rhonchi, wheezing Cardiovascular/Chest: Present: regular rate, rhythm, no chest tenderness, no edema - trace bilat lower extremity edema, JVD - mild Abdomen: Present: Normal bowel sounds, soft, nontender, obese /Rectal: Present: Exam deferred Extremity: Present: non-tender, normal inspection, no pedal edema Skin Exam: Present: normal color, warm/dry, no cyanosis Neurologic: Present: alert, oriented x 3 Assessment/Plan - Problems/Diagnosis (1) Respiratory failure Problem: Acute Qualifiers: Chronicity: acute Respiratory failure complication: hypoxia Qualified Code(s): J96.01 - Acute respiratory failure with hypoxia Narrative: o2 needs are less. cont iv steroids. cpap/bipap as needed. cont incentive spirometer. wean as able. (2) Leukocytosis Problem: Acute Qualifiers: Leukocytosis type: bandemia Qualified Code(s): D72.825 - Bandemia Narrative: stable for the last 24 hours, has not worsened. cont iv abx for the likely sources of infection. check labs in the am. (3) COPD exacerbation Problem: Acute Narrative: cont iv steroids and neb tx. pft complete outpt. (4) Hypoxemia Problem: Acute Narrative: improving. (5) Lethargy Problem: Acute Narrative: improving. (6) Obesity Problem: Chronic Qualifiers: Obesity type: unspecified obesity type Obesity severity: morbid Qualified Code(s): E66.01 - Morbid (severe) obesity due to excess calories (7) Sleep apnea Problem: Chronic Qualifiers: Sleep apnea type: unspecified type Qualified Code(s): G47.30 - Sleep apnea , unspecified (8) UTI (urinary tract infection) Problem: Acute Qualifiers: Urinary tract infection type: site unspecified Hematuria presence: without hematuria Qualified Code(s): N39.0 - Urinary tract infection, site not specified Narrative: awaiting urine culture final results. cont iv abx for now. (9) Diabetes type 2, controlled Problem: Chronic Qualifiers: Diabetes mellitus complication status: with unspecified complications Diabetes mellitus terminal manager insulin use: without terminal manager use Qualified Code( s): E11.8 - Type 2 diabetes mellitus with unspecified complications Narrative: restart oral meds tomorrow - sliding scale insulin as needed to cover. (10) Pneumonia Problem: Acute Qualifiers: Pneumonia type: due to unspecified organism Laterality: unspecified laterality Lung location: unspecified part of lung Qualified Code(s): J18.9 - Pneumonia, unspecified organism Narrative: continue iv abx, awaiting sputum culture results. (11) CHF (congestive heart failure) Problem: Acute Qualifiers: Congestive heart failure type: systolic Congestive heart failure chronicity : acute Qualified Code(s): I50.21 - Acute systolic (congestive) heart failure Narrative: ef 45-50%. weight in up in 24 hours. will order 20 mg iv lasix today to see how pt responds. unable to order more as pt has a bp that is on the lower side.
[2017-03-07] MEDS: ROSUVASTATIN CALCIUM 10 MG TABLET PO SCH (20:59)
[2017-03-07] MEDS: traZODone HCL 50 MG TABLET PO SCH (21:08)
[2017-03-08] MEDS: NORMAL SALINE 1,000 ML IV PRN (04:07)
[2017-03-08] MEDS: METHYLPREDNISOLONE SOD SUCC 60 MG in WATER FOR INJ.,BACTERIOSTATIC 0 ML IV SCH ×4 (04:15→23:08)
[2017-03-08 05:02] LABS: Hematocrit 40.5 % (42.0-52.0); Hemoglobin 13.5 gm/dL (13.5-18.0); Mean Cell Volume 86.4 fl (78-100); Mean Corpuscular Hemoglobin 28.8 pg (27-31); Mean Corpuscular Hgb Conc 33.3 g/dl (32-36); Mean Platelet Volume 9.5 fl (6.0-9.5); Neutrophil # 6.7 K/mm3 (1.3-6.0); Neutrophil % 84.4 % (42-75.0); Platelet Count 163 K/mm3 (150-450); Red Blood Count 4.69 M/mm3 (4.7-6.0); Red Cell Distribution Width 12.6 % (11.5-14.0)
[2017-03-08 05:21] LABS: Albumin * 2.6 gm/dl (3.4-5.0); Anion Gap 11.4 mmol/L (6.8-13.8); BUN/Creatinine Ratio 22.2 (9.0-21.6); Bilirubin, Total 0.3 mg/dL (0.0-1.1); Calcium * 8.2 mg/dL (7.9-10.9); Potassium 4.4 mmol/L (3.4-4.6); Total Protein 6.5 gm/dL (6.2-8.2)
[2017-03-08] MEDS: ALBUTEROL SULFATE/IPRATROPIUM 3 ML NEBU IH SCH ×4 (06:15→18:07)
[2017-03-08] MEDS: INSULIN REGULAR, HUMAN 100 UNITS/ML VIAL SC SCH ×4 (07:33→21:41)
[2017-03-08] MEDS ORDERED: FUROSEMIDE 10 MG/ML VIAL IV ONE (07:54)
[2017-03-08] MEDS: HYDROXYCHLOROQUINE SULFATE 200 MG TABLET PO SCH ×2 (08:40→20:39)
[2017-03-08] MEDS: SERTRALINE HCL 100 MG TABLET PO SCH ×2 (08:40→20:38)
[2017-03-08] MEDS: OXYBUTYNIN CHLORIDE 5 MG TABLET PO SCH ×2 (08:40→20:39)
[2017-03-08] MEDS: MELOXICAM 15 MG TABLET PO SCH (08:40)
[2017-03-08] MEDS: SACCHAROMYCES BOULARDII 250 MG CAPSULE PO SCH ×2 (08:40→20:38)
[2017-03-08] MEDS: CEFEPIME HCL 2 GM in DEXTROSE 5 % IN WATER 100 ML IV SCH ×4 (10:26→23:09)
[2017-03-08] MEDS: LEVOFLOXACIN/D5W 750 MG in Premix Bag 1 BAG IV SCH (11:30)
[2017-03-08] MEDS: VANCOMYCIN HCL 2 GM in DEXTROSE 5 % IN WATER 500 ML IV SCH ×4 (13:06→23:50)
[2017-03-08] MEDS: ENOXAPARIN SODIUM 40 MG/0.4 ML SYRG SC SCH (16:00)
--- NOTE | 2017-03-08 18:05 | PN ---
Subjective - Date and Time Seen Date: 03/08/17 Time: 16:45 Subjective Narrative: Reed is a 66 year old male with a UTI, non-Hodgkin lymphoma with previous chemo 12/2015 for 5 months, morbid obesity, jail prior smoker that quit 02/17, chronic Q fever and hx of sub-acute endocarditis that presented to the ER on 03/05/17 with c/o fever and confusion. fever up to 102. In the ER, pt was found to be 83% on RA - placed on 4L via NC - sats 94%. CT of the chest was done, which was negative for PE, but positive for pneumonia in the RUL, RLL and RLL vs atelectasis. pt admitted for respiratory failure, pneumonia, uti and further observation. ammonia level was checked and was wnl. c diff pending. abg unremarkable. pt was started on iv rocephin in the ER. Upon assessment this am at 0955, wbc decrease from wnl to low at 3.7. pt now has 16% bands. duoneb scheduled at [facility] 4 hours. premlim urine cult is neg. still on 4 liter via nc. ns at 100 ml/hr. heart tones very faint. pt denies cp and states mild dyspnea. given leukocytosis, lactic acid, procalcitonin, 2 set blood cultures and bnp were ordered. due to recent fevers of 102 rapid influenza was also ordered. [facility] with dr. quiroz - changed abx to iv cefepine, iv levaquin. also added a 1 time dose of iv vanco. sputum culture ordered as well. Around 1230, went to reassess the patient, and bp in room showed sbp of 88 - ordered levophed drip to titrate to sbp >90. recheck of bp showed sbp 105 so levophed gtt was held and pharmacy was notified to hold gtt in case it was needed later. I also verbally ordered transfer to the scu but once bp was found to be higher I indicated that this was not needed since the levophed gtt was not needed. in addition, heart tones still faint so bedside echo was ordered. ekg was also done and was wnl. at this time, i was also notified that indicates pt is becoming more lethargic. pt indicates to me that he is become more short of breath. repeat abg show rise in co2 level. thus, bipap was ordered. prelim echo from dr quiroz shows no pericardial effusion and ef 45-50% but echo is hard to read due to pt's body habitus. on 03/07/17 - overnight has improved. wbc stable. neutrophils 82. liver panel mildly elevated. weight up 1 kg in 24 hours. c diff neg. o2 needs less - clinically looks better than yesterday. currently on cefepime, levaquin iv. pt states he feels better than yesterday. on 03/08/17 - continues to improve. wbc wnl. neutrophils stable. bnp mildly elevated at 433. weight down 2 kg in 24 hours. O2 needs continue to decrease. using cpap at night and when asleep in chair. currently on cefepime, levaquin - have added vanco q12 hours as well. pt states that he continues to improve. Objective - Review of Systems Generalized/Overall Review: Reports: Fatigue EENTM: Reports: No Symptoms Reported Respiratory: Reports: Shortness of Breath, Other - crackles Cardiac: Reports: No Symptoms Reported Abdominal: Reports: No Symptoms Reported Genitourinary Symptoms: Reports: No Symptoms Reported Musculoskeletal Complaints: Reports: No Symptoms Reported Neurological: Reports: No Symptoms Reported Skin: Reports: No Symptoms Reported Endocrine: Reports: No Symptoms Reported Misc: All systems neg except as marked - Vitals Vitals: Last Vital Signs Temp 36.2 C L 03/08/17 15:03 Pulse 90 03/08/17 15:03 Resp 18 03/08/17 15:03 BP 118/67 03/08/17 15:03 Pulse Ox 83 L 03/08/17 15:03 - Abnormal Lab Findings Abnormal Lab Findings: Abnormal Lab Results 03/08/17 03/08/17 Range/Units 04:58 04:58 RBC 4.69 L (4.7-6.0) M/mm3 Hct 40.5 L (42.0-52.0) % Immature Gran % (Auto) 1.10 H (0.001-0.429) % Immature Gran # (Auto) 0.09 H (0.000-0.0310) K/mm3 Neutrophils % 84.4 H (42-75.0) % Lymphocytes % 7.4 L (20-51) % Neutrophils # 6.7 H (1.3-6.0) K/mm3 Lymphocytes # 0.6 L (1.5-3.5) k/mm3 BUN/Creatinine Ratio 22.2 H (9.0-21.6) Random Glucose 138 H (70-110) mg/dL AST 182 H (0-48) U/L ALT 106 H (19-67) U/L Alkaline Phosphatase 46 L (50-170) U/L B-Natriuretic Peptide 433 H (5-350) pg/mL Albumin 2.6 L (3.4-5.0) gm/dl - Exam Constitutional: Present: Alert, Oriented x3, Cooperative, No distress ENT Exam: Present: hearing grossly normal Neck: Present: supple, normal inspection Breasts: Present: Exam deferred Respiratory: Present: chest non-tender, rales, rhonchi, expiration (prolonged) Cardiovascular/Chest: Present: normal peripheral pulses, regular rate, rhythm, JVD - mild, edema - +1 lower extremity edema bilat Abdomen: Present: Normal bowel sounds, soft, nontender, obese /Rectal: Present: Exam deferred Extremity: Present: non-tender, normal inspection, no calf tenderness Skin Exam: Present: normal color, warm/dry, no cyanosis Neurologic: Present: alert, oriented x 3 Assessment/Plan - Problems/Diagnosis (1) Respiratory failure Problem: Acute Qualifiers: Chronicity: acute Respiratory failure complication: hypoxia Qualified Code(s): J96.01 - Acute respiratory failure with hypoxia Narrative: will need to walk pt with O2 monitor on and eval when pt is ready. cont to monitor. cpap/bipap as needed. (2) Leukocytosis Problem: Acute Qualifiers: Leukocytosis type: bandemia Qualified Code(s): D72.825 - Bandemia (3) COPD exacerbation Problem: Acute Narrative: iv steroid decreased to q 8 hours. cont neb tx. cont incentive spirometer. (4) Hypoxemia Problem: Acute (5) Lethargy Problem: Acute (6) Obesity Problem: Chronic Qualifiers: Obesity type: unspecified obesity type Obesity severity: morbid Qualified Code(s): E66.01 - Morbid (severe) obesity due to excess calories (7) Sleep apnea Problem: Chronic Qualifiers: Sleep apnea type: unspecified type Qualified Code(s): G47.30 - Sleep apnea , unspecified (8) UTI (urinary tract infection) Problem: Acute Qualifiers: Urinary tract infection type: site unspecified Hematuria presence: without hematuria Qualified Code(s): N39.0 - Urinary tract infection, site not specified (9) Diabetes type 2, controlled Problem: Chronic Qualifiers: Diabetes mellitus complication status: with unspecified complications Diabetes mellitus jail insulin use: without emt intermediate use Qualified Code( s): E11.8 - Type 2 diabetes mellitus with unspecified complications (10) Pneumonia Problem: Acute Qualifiers: Pneumonia type: due to unspecified organism Laterality: unspecified laterality Lung location: unspecified part of lung Qualified Code(s): J18.9 - Pneumonia, unspecified organism Narrative: improving clinical picture - pt continues to feel better and look better each day. cont iv abx. monitor labs. (11) CHF (congestive heart failure) Problem: Acute Qualifiers: Congestive heart failure type: systolic Congestive heart failure chronicity : acute Qualified Code(s): I50.21 - Acute systolic (congestive) heart failure Narrative: weight down 2 kg - give an additional 20 mg lasix iv today. check labs in am.
[2017-03-08] MEDS: traZODone HCL 50 MG TABLET PO SCH (20:38)
[2017-03-08] MEDS: ROSUVASTATIN CALCIUM 10 MG TABLET PO SCH (20:39)
[2017-03-08] MEDS: TAMSULOSIN HCL 0.4 MG CAP.SR.24H PO SCH (20:39)
[2017-03-09] MEDS: METHYLPREDNISOLONE SOD SUCC 60 MG in WATER FOR INJ.,BACTERIOSTATIC 0 ML IV SCH ×3 (04:09→20:28)
[2017-03-09] MEDS: ALBUTEROL SULFATE/IPRATROPIUM 3 ML NEBU IH SCH ×4 (06:07→18:12)
[2017-03-09] MEDS: INSULIN REGULAR, HUMAN 100 UNITS/ML VIAL SC SCH ×4 (07:32→22:53)
[2017-03-09 07:50] LABS: Hematocrit 44.1 % (42.0-52.0); Hemoglobin 14.9 gm/dL (13.5-18.0); Mean Corpuscular Hgb Conc 33.8 g/dl (32-36); Mean Platelet Volume 9.2 fl (6.0-9.5); Neutrophil # 7.8 K/mm3 (1.3-6.0); Neutrophil % 87.3 % (42-75.0); Platelet Count 211 K/mm3 (150-450); Red Blood Count 5.13 M/mm3 (4.7-6.0); Red Cell Distribution Width 12.5 % (11.5-14.0); White Blood Count 8.9 K/mm3 (4.0-10.5)
[2017-03-09 08:06] LABS: Albumin * 2.8 gm/dl (3.4-5.0); Anion Gap 10.2 mmol/L (6.8-13.8); BUN/Creatinine Ratio 22.8 (9.0-21.6); Bilirubin, Total 0.6 mg/dL (0.0-1.1); Ca. Corrected For Albumin 9.3 mg/dL (8.4-10.2); Calcium * 8.7 mg/dL (7.9-10.9); Potassium 4.2 mmol/L (3.4-4.6); Total Protein 7.1 gm/dL (6.2-8.2)
[2017-03-09] MEDS: SERTRALINE HCL 100 MG TABLET PO SCH ×2 (09:15→20:26)
[2017-03-09] MEDS: MELOXICAM 15 MG TABLET PO SCH (09:15)
[2017-03-09] MEDS: metFORMIN HCL 500 MG TABLET PO SCH ×2 (09:15→17:32)
[2017-03-09] MEDS: HYDROXYCHLOROQUINE SULFATE 200 MG TABLET PO SCH ×2 (09:15→20:27)
[2017-03-09] MEDS: OXYBUTYNIN CHLORIDE 5 MG TABLET PO SCH ×2 (09:15→20:28)
[2017-03-09] MEDS: SACCHAROMYCES BOULARDII 250 MG CAPSULE PO SCH ×2 (09:15→20:27)
[2017-03-09] MEDS: CEFEPIME HCL 2 GM in DEXTROSE 5 % IN WATER 100 ML IV SCH ×4 (10:18→22:46)
[2017-03-09] MEDS: LEVOFLOXACIN/D5W 750 MG in Premix Bag 1 BAG IV SCH (10:56)
[2017-03-09] MEDS ORDERED: VANCOMYCIN HCL LEVEL XX ONE (11:30)
[2017-03-09] MEDS: VANCOMYCIN HCL 2 GM in DEXTROSE 5 % IN WATER 500 ML IV SCH ×2 (12:53)
--- NOTE | 2017-03-09 15:00 | PN ---
Subjective - Date and Time Seen Date: 03/09/17 Time: 14:59 Subjective Narrative: Reed is a 66 year old male with a UTI, non-Hodgkin lymphoma with previous chemo 12/2015 for 5 months, morbid obesity, assisted prior smoker that quit 02/17, chronic Q fever and hx of sub-acute endocarditis that presented to the ER on 03/05/17 with c/o fever and confusion. fever up to 102. In the ER, pt was found to be 83% on RA - placed on 4L via NC - sats 94%. CT of the chest was done, which was negative for PE, but positive for pneumonia in the RUL, RLL and RLL vs atelectasis. pt admitted for respiratory failure, pneumonia, uti and further observation. ammonia level was checked and was wnl. c diff pending. abg unremarkable. pt was started on iv rocephin in the ER. Upon assessment this am at 0955, wbc decrease from wnl to low at 3.7. pt now has 16% bands. duoneb scheduled at [facility] 4 hours. premlim urine cult is neg. still on 4 liter via nc. ns at 100 ml/hr. heart tones very faint. pt denies cp and states mild dyspnea. given leukocytosis, lactic acid, procalcitonin, 2 set blood cultures and bnp were ordered. due to recent fevers of 102 rapid influenza was also ordered. [facility] with dr. quiroz - changed abx to iv cefepine, iv levaquin. also added a 1 time dose of iv vanco. sputum culture ordered as well. Around 1230, went to reassess the patient, and bp in room showed sbp of 88 - ordered levophed drip to titrate to sbp >90. recheck of bp showed sbp 105 so levophed gtt was held and pharmacy was notified to hold gtt in case it was needed later. I also verbally ordered transfer to the scu but once bp was found to be higher I indicated that this was not needed since the levophed gtt was not needed. in addition, heart tones still faint so bedside echo was ordered. ekg was also done and was wnl. at this time, i was also notified that indicates pt is becoming more lethargic. pt indicates to me that he is become more short of breath. repeat abg show rise in co2 level. thus, bipap was ordered. prelim echo from dr quiroz shows no pericardial effusion and ef 45-50% but echo is hard to read due to pt's body habitus. on 03/07/17 - overnight has improved. wbc stable. neutrophils 82. liver panel mildly elevated. weight up 1 kg in 24 hours. c diff neg. o2 needs less - clinically looks better than yesterday. currently on cefepime, levaquin iv. pt states he feels better than yesterday. on 03/08/17 - continues to improve. wbc wnl. neutrophils stable. bnp mildly elevated at 433. weight down 2 kg in 24 hours. O2 needs continue to decrease. using cpap at night and when asleep in chair. currently on cefepime, levaquin - have added vanco q12 hours as well. pt states that he continues to improve. on 03/09/17 - continues to improve, although slowly. blood cultures negative at 48 hours. final urine culture negative. final sputum culture negative. weight up at 171.2 kg - appears to be fluid overloaded but will get chest xray today to confirm. urine legionella neg. sats 92% on ra but desats with minimal activity. am labs pending. Objective - Review of Systems Generalized/Overall Review: Reports: Weakness, Fatigue EENTM: Reports: No Symptoms Reported Respiratory: Reports: Shortness of Breath Cardiac: Reports: No Symptoms Reported Abdominal: Reports: No Symptoms Reported Genitourinary Symptoms: Reports: No Symptoms Reported Musculoskeletal Complaints: Reports: No Symptoms Reported Neurological: Reports: No Symptoms Reported Skin: Reports: No Symptoms Reported Endocrine: Reports: No Symptoms Reported Misc: All systems neg except as marked - Vitals Vitals: Last Vital Signs Temp 36.8 C 03/09/17 10:43 Pulse 83 03/09/17 14:52 Resp 18 03/09/17 14:52 BP 114/70 03/09/17 10:43 Pulse Ox 94 03/09/17 14:52 - Abnormal Lab Findings Abnormal Lab Findings: Abnormal Lab Results 03/09/17 03/09/17 Range/Units 07:45 07:45 Immature Gran % (Auto) 1.70 H (0.001-0.429) % Immature Gran # (Auto) 0.15 H (0.000-0.0310) K/mm3 Neutrophils % 87.3 H (42-75.0) % Lymphocytes % 9.9 L (20-51) % Neutrophils # 7.8 H (1.3-6.0) K/mm3 Lymphocytes # 0.9 L (1.5-3.5) k/mm3 BUN/Creatinine Ratio 22.8 H (9.0-21.6) Random Glucose 163 H (70-110) mg/dL AST 173 H (0-48) U/L ALT 154 H (19-67) U/L Albumin 2.8 L (3.4-5.0) gm/dl - Exam Constitutional: Present: Alert, Oriented x3, Cooperative, No distress ENT Exam: Present: hearing grossly normal Neck: Present: supple Breasts: Present: Exam deferred Respiratory: Present: chest non-tender, decreased breath sounds, rales Cardiovascular/Chest: Present: normal peripheral pulses, regular rate, rhythm, JVD Abdomen: Present: Normal bowel sounds, soft, nontender, obese - morbid Extremity: Present: non-tender, normal inspection, lower extremity edema - mild bilat edema Skin Exam: Present: normal color, warm/dry, no cyanosis Neurologic: Present: alert, oriented x 3 Assessment/Plan - Problems/Diagnosis (1) Respiratory failure Problem: Acute Qualifiers: Chronicity: acute Respiratory failure complication: hypoxia Qualified Code(s): J96.01 - Acute respiratory failure with hypoxia Narrative: supplement cpap / bipap as needed. (2) Leukocytosis Problem: Acute Qualifiers: Leukocytosis type: bandemia Qualified Code(s): D72.825 - Bandemia (3) COPD exacerbation Problem: Acute Narrative: duoneb scheduled and prn available. teaching materials given to patient. (4) Hypoxemia Problem: Acute Narrative: improved when sitting but still hypoxic when walking. (5) Lethargy Problem: Resolved (6) Obesity Problem: Chronic Qualifiers: Obesity type: unspecified obesity type Obesity severity: morbid Qualified Code(s): E66.01 - Morbid (severe) obesity due to excess calories (7) Sleep apnea Problem: Chronic Qualifiers: Sleep apnea type: unspecified type Qualified Code(s): G47.30 - Sleep apnea , unspecified (8) UTI (urinary tract infection) Problem: Ruled-out Qualifiers: Urinary tract infection type: site unspecified Hematuria presence: without hematuria Qualified Code(s): N39.0 - Urinary tract infection, site not specified Narrative: urine culture final did not grow anything. (9) Diabetes type 2, controlled Problem: Chronic Qualifiers: Diabetes mellitus complication status: with unspecified complications Diabetes mellitus assisted insulin use: without assisted use Qualified Code( s): E11.8 - Type 2 diabetes mellitus with unspecified complications Narrative: since sepsis was ruled out - restart metformin. sliding scale as needed. (10) Pneumonia Problem: Suspected Qualifiers: Pneumonia type: due to unspecified organism Laterality: unspecified laterality Lung location: unspecified part of lung Qualified Code(s): J18.9 - Pneumonia, unspecified organism (11) CHF (congestive heart failure) Problem: Acute Qualifiers: Congestive heart failure type: systolic Congestive heart failure chronicity : acute Qualified Code(s): I50.21 - Acute systolic (congestive) heart failure Narrative: weight up. clinically appears to be fluid overloaded. give higher dose of lasix today. check labs in the am. check chest xray today. monitor closely.
[2017-03-09] MEDS ORDERED: FUROSEMIDE 10 MG/ML VIAL IV SCH (16:00)
[2017-03-09] MEDS: ENOXAPARIN SODIUM 40 MG/0.4 ML SYRG SC SCH (16:13)
[2017-03-09] MEDS: TAMSULOSIN HCL 0.4 MG CAP.SR.24H PO SCH (18:32)
[2017-03-09] MEDS ORDERED: FUROSEMIDE 10 MG/ML VIAL IV ONE (18:44)
[2017-03-09] MEDS ORDERED: SERTRALINE HCL 50 MG TABLET ONE (20:24)
[2017-03-09] MEDS: traZODone HCL 50 MG TABLET PO SCH (20:27)
[2017-03-09] MEDS: ROSUVASTATIN CALCIUM 10 MG TABLET PO SCH (20:28)
[2017-03-09] MEDS ORDERED: FUROSEMIDE 10 MG/ML VIAL ONE (22:41)
[2017-03-10] MEDS: VANCOMYCIN HCL 2 GM in DEXTROSE 5 % IN WATER 500 ML IV SCH ×6 (00:05→23:31)
[2017-03-10] MEDS ORDERED: ACETAMINOPHEN 325 MG TABLET PO PRN (04:47)
[2017-03-10] MEDS ORDERED: ACETAMINOPHEN 325 MG TABLET ONE (04:50)
[2017-03-10] MEDS: METHYLPREDNISOLONE SOD SUCC 60 MG in WATER FOR INJ.,BACTERIOSTATIC 0 ML IV SCH ×3 (04:55→20:50)
[2017-03-10] MEDS: ALBUTEROL SULFATE/IPRATROPIUM 3 ML NEBU IH SCH ×4 (06:05→18:05)
[2017-03-10 06:12] LABS: Hematocrit 43.4 % (42.0-52.0); Hemoglobin 14.5 gm/dL (13.5-18.0); Mean Cell Volume 86.3 fl (78-100); Mean Corpuscular Hemoglobin 28.8 pg (27-31); Mean Corpuscular Hgb Conc 33.4 g/dl (32-36); Mean Platelet Volume 9.1 fl (6.0-9.5); Platelet Count 251 K/mm3 (150-450); Red Blood Count 5.03 M/mm3 (4.7-6.0); Red Cell Distribution Width 12.8 % (11.5-14.0); White Blood Count 8.4 K/mm3 (4.0-10.5)
[2017-03-10 06:16] LABS: Total Cells Counted 100
[2017-03-10 06:29] LABS: Albumin * 2.6 gm/dl (3.4-5.0); Anion Gap 8.7 mmol/L (6.8-13.8); BUN/Creatinine Ratio 24.7 (9.0-21.6); Bilirubin, Total 0.5 mg/dL (0.0-1.1); Ca. Corrected For Albumin 9.3 mg/dL (8.4-10.2); Calcium * 8.5 mg/dL (7.9-10.9); Carbon Dioxide 31.5 mmol/L (24-32.6); Potassium 4.2 mmol/L (3.4-4.6); Total Protein 6.7 gm/dL (6.2-8.2)
[2017-03-10 06:35] LABS: Band 3 % (0-2.0); Immature Granulocyte 3 (0-1); Lymphocyte 4 % (20-51); Monocyte 1 % (0-9); Neutrophil 89 % (42-75); Neutrophil # 7.5 K/mm3 (1.3-6.0)
[2017-03-10 06:36] LABS: Platelet Estimate Normal (NORMAL); Toxic Granulation 2+
[2017-03-10 06:37] LABS: RBC Morphology Normal (NORMAL)
[2017-03-10] MEDS: INSULIN REGULAR, HUMAN 100 UNITS/ML VIAL SC SCH ×4 (07:03→21:04)
[2017-03-10] MEDS: MELOXICAM 15 MG TABLET PO SCH (08:51)
[2017-03-10] MEDS: SACCHAROMYCES BOULARDII 250 MG CAPSULE PO SCH ×2 (08:51→20:52)
[2017-03-10] MEDS: HYDROXYCHLOROQUINE SULFATE 200 MG TABLET PO SCH ×2 (08:51→20:53)
[2017-03-10] MEDS: OXYBUTYNIN CHLORIDE 5 MG TABLET PO SCH ×2 (08:51→20:52)
[2017-03-10] MEDS: metFORMIN HCL 500 MG TABLET PO SCH ×2 (08:52→16:06)
[2017-03-10] MEDS: SERTRALINE HCL 100 MG TABLET PO SCH ×2 (08:57→20:53)
[2017-03-10] MEDS: CEFEPIME HCL 2 GM in DEXTROSE 5 % IN WATER 100 ML IV SCH ×4 (09:56→21:45)
[2017-03-10] MEDS: ENOXAPARIN SODIUM 40 MG/0.4 ML SYRG SC SCH (16:06)
[2017-03-10] MEDS ORDERED: hydrOXYzine HCL 25 MG TABLET PO PRN (17:37)
--- NOTE | 2017-03-10 17:38 | PN ---
Subjective - Date and Time Seen Date: 03/10/17 Time: 17:37 Subjective Narrative: Reed is a 66 year old male with a UTI, non-Hodgkin lymphoma with previous chemo 12/2015 for 5 months, morbid obesity, residential prior smoker that quit 02/17, chronic Q fever and hx of sub-acute endocarditis that presented to the ER on 03/05/17 with c/o fever and confusion. fever up to 102. In the ER, pt was found to be 83% on RA - placed on 4L via NC - sats 94%. CT of the chest was done, which was negative for PE, but positive for pneumonia in the RUL, RLL and RLL vs atelectasis. pt admitted for respiratory failure, pneumonia, uti and further observation. ammonia level was checked and was wnl. c diff pending. abg unremarkable. pt was started on iv rocephin in the ER. Upon assessment this am at 0955, wbc decrease from wnl to low at 3.7. pt now has 16% bands. duoneb scheduled at [facility] 4 hours. premlim urine cult is neg. still on 4 liter via nc. ns at 100 ml/hr. heart tones very faint. pt denies cp and states mild dyspnea. given leukocytosis, lactic acid, procalcitonin, 2 set blood cultures and bnp were ordered. due to recent fevers of 102 rapid influenza was also ordered. [facility] with dr. quiroz - changed abx to iv cefepine, iv levaquin. also added a 1 time dose of iv vanco. sputum culture ordered as well. Around 1230, went to reassess the patient, and bp in room showed sbp of 88 - ordered levophed drip to titrate to sbp >90. recheck of bp showed sbp 105 so levophed gtt was held and pharmacy was notified to hold gtt in case it was needed later. I also verbally ordered transfer to the scu but once bp was found to be higher I indicated that this was not needed since the levophed gtt was not needed. in addition, heart tones still faint so bedside echo was ordered. ekg was also done and was wnl. at this time, i was also notified that indicates pt is becoming more lethargic. pt indicates to me that he is become more short of breath. repeat abg show rise in co2 level. thus, bipap was ordered. prelim echo from dr quiroz shows no pericardial effusion and ef 45-50% but echo is hard to read due to pt's body habitus. on 03/07/17 - overnight has improved. wbc stable. neutrophils 82. liver panel mildly elevated. weight up 1 kg in 24 hours. c diff neg. o2 needs less - clinically looks better than yesterday. currently on cefepime, levaquin iv. pt states he feels better than yesterday. on 03/08/17 - continues to improve. wbc wnl. neutrophils stable. bnp mildly elevated at 433. weight down 2 kg in 24 hours. O2 needs continue to decrease. using cpap at night and when asleep in chair. currently on cefepime, levaquin - have added vanco q12 hours as well. pt states that he continues to improve. on 03/09/17 - continues to improve, although slowly. blood cultures negative at 48 hours. final urine culture negative. final sputum culture negative. weight up at 171.2 kg - appears to be fluid overloaded but will get chest xray today to confirm. urine legionella neg. sats 92% on ra but desats with minimal activity. am labs pending. on 03/10/17 weight down. ALT up 154--> 172. not ambulating much. states he feels a little better after the iv lasix yesterday. Objective - Review of Systems Generalized/Overall Review: Reports: Weakness, Fatigue EENTM: Reports: No Symptoms Reported Respiratory: Reports: Shortness of Breath Cardiac: Reports: No Symptoms Reported Abdominal: Reports: No Symptoms Reported Genitourinary Symptoms: Reports: No Symptoms Reported Musculoskeletal Complaints: Reports: No Symptoms Reported Neurological: Reports: Weakness Skin: Reports: No Symptoms Reported Endocrine: Reports: No Symptoms Reported Misc: All systems neg except as marked - Vitals Vitals: Last Vital Signs Temp 36.7 C 03/10/17 15:59 Pulse 96 03/10/17 15:59 Resp 18 03/10/17 15:59 BP 116/66 03/10/17 15:59 Pulse Ox 92 03/10/17 15:59 - Abnormal Lab Findings Abnormal Lab Findings: Abnormal Lab Results 03/10/17 03/10/17 Range/Units 05:41 05:41 Neutrophils % (Manual) 89 H (42-75) % Band Neuts % (Manual) 3 H (0-2.0) % Lymphocytes % (Manual) 4 L (20-51) % Immature Granulocytes 3 H (0-1) Neutrophils # (Manual) 7.5 H (1.3-6.0) K/mm3 Lymphocytes # (Manual) 0.3 L (1.5-3.5) k/mm3 BUN/Creatinine Ratio 24.7 H (9.0-21.6) Random Glucose 150 H (70-110) mg/dL AST 149 H (0-48) U/L ALT 172 H (19-67) U/L Albumin 2.6 L (3.4-5.0) gm/dl - Exam Constitutional: Present: Alert, Oriented x3, Cooperative, No distress ENT Exam: Present: hearing grossly normal Neck: Present: supple Respiratory: Present: chest non-tender, no respiratory distress, decreased breath sounds, rales Cardiovascular/Chest: Present: normal peripheral pulses, regular rate, rhythm, no chest tenderness Abdomen: Present: Normal bowel sounds, soft, nondistended /Rectal: Present: Exam deferred Extremity: Present: normal range of motion, non-tender Skin Exam: Present: normal color, warm/dry, no cyanosis, other - clubbing noted to distal finger tips Neurologic: Present: alert, oriented x 3 Assessment/Plan Plan Narrative: patient admitted with respiratory failure. UTI ruled out with negative urine culture. diuresed well with iv lasix yesterday. will repeat iv lasix today as pt still clinically appears fluid overloaded. cont iv vanco and iv rocephin for pneumonia. alt still continues to climb. will stop additional home medications that are toxic to the liver. check labs in the am. ambulate patient as he is able. - Problems/Diagnosis (1) Respiratory failure Problem: Acute Qualifiers: Chronicity: acute Respiratory failure complication: hypoxia Qualified Code(s): J96.01 - Acute respiratory failure with hypoxia (2) Leukocytosis Problem: Acute Qualifiers: Leukocytosis type: bandemia Qualified Code(s): D72.825 - Bandemia (3) COPD exacerbation Problem: Acute (4) Hypoxemia Problem: Acute (5) Lethargy Problem: Acute (6) Obesity Problem: Chronic Qualifiers: Obesity type: unspecified obesity type Obesity severity: morbid Qualified Code(s): E66.01 - Morbid (severe) obesity due to excess calories (7) Sleep apnea Problem: Chronic Qualifiers: Sleep apnea type: unspecified type Qualified Code(s): G47.30 - Sleep apnea , unspecified (8) UTI (urinary tract infection) Problem: Ruled-out Qualifiers: Urinary tract infection type: site unspecified Hematuria presence: without hematuria Qualified Code(s): N39.0 - Urinary tract infection, site not specified (9) Diabetes type 2, controlled Problem: Chronic Qualifiers: Diabetes mellitus complication status: with unspecified complications Diabetes mellitus residential insulin use: without residential use Qualified Code( s): E11.8 - Type 2 diabetes mellitus with unspecified complications (10) Pneumonia Problem: Suspected Qualifiers: Pneumonia type: due to unspecified organism Laterality: unspecified laterality Lung location: unspecified part of lung Qualified Code(s): J18.9 - Pneumonia, unspecified organism (11) CHF (congestive heart failure) Problem: Acute Qualifiers: Congestive heart failure type: systolic Congestive heart failure chronicity : acute Qualified Code(s): I50.21 - Acute systolic (congestive) heart failure (12) Elevated liver enzymes Problem: Acute
[2017-03-10] MEDS ORDERED: FUROSEMIDE 10 MG/ML VIAL IV ONE (18:00)
[2017-03-10] MEDS: TAMSULOSIN HCL 0.4 MG CAP.SR.24H PO SCH (19:53)
[2017-03-10] MEDS: hydrOXYzine HCL 25 MG TABLET PO SCH (20:52)
[2017-03-11 05:35] LABS: Hematocrit 42.2 % (42.0-52.0); Hemoglobin 14.1 gm/dL (13.5-18.0); Mean Cell Volume 86.1 fl (78-100); Mean Corpuscular Hemoglobin 28.8 pg (27-31); Mean Corpuscular Hgb Conc 33.4 g/dl (32-36); Mean Platelet Volume 9.1 fl (6.0-9.5); Platelet Count 296 K/mm3 (150-450); Red Cell Distribution Width 12.6 % (11.5-14.0); White Blood Count 7.7 K/mm3 (4.0-10.5)
[2017-03-11 05:56] LABS: Albumin * 2.6 gm/dl (3.4-5.0); Anion Gap 11.3 mmol/L (6.8-13.8); BUN/Creatinine Ratio 25.9 (9.0-21.6); Bilirubin, Total 0.5 mg/dL (0.0-1.1); Ca. Corrected For Albumin 9.3 mg/dL (8.4-10.2); Calcium * 8.5 mg/dL (7.9-10.9); Potassium 4.3 mmol/L (3.4-4.6); Total Protein 6.5 gm/dL (6.2-8.2)
[2017-03-11 06:09] LABS: Total Cells Counted 100
[2017-03-11] MEDS: ALBUTEROL SULFATE/IPRATROPIUM 3 ML NEBU IH SCH ×4 (06:15→18:18)
[2017-03-11 06:19] LABS: Band 1 % (0-2.0); Immature Granulocyte 3 (0-1); Lymphocyte 9 % (20-51); Monocyte 2 % (0-9); Neutrophil 85 % (42-75); Neutrophil # 6.5 K/mm3 (1.3-6.0); Platelet Estimate Normal (NORMAL); RBC Morphology Normal (NORMAL)
[2017-03-11] MEDS: METHYLPREDNISOLONE SOD SUCC 60 MG in WATER FOR INJ.,BACTERIOSTATIC 0 ML IV SCH ×2 (06:32→11:16)
[2017-03-11] MEDS: INSULIN REGULAR, HUMAN 100 UNITS/ML VIAL SC SCH ×4 (07:40→20:54)
[2017-03-11] MEDS: metFORMIN HCL 500 MG TABLET PO SCH ×2 (09:05→17:40)
[2017-03-11] MEDS: SERTRALINE HCL 100 MG TABLET PO SCH ×2 (09:06→20:45)
[2017-03-11] MEDS: SACCHAROMYCES BOULARDII 250 MG CAPSULE PO SCH ×2 (09:06→20:45)
[2017-03-11] MEDS: HYDROXYCHLOROQUINE SULFATE 200 MG TABLET PO SCH ×2 (09:06→20:45)
[2017-03-11] MEDS: OXYBUTYNIN CHLORIDE 5 MG TABLET PO SCH ×2 (09:06→20:46)
[2017-03-11] MEDS: CEFEPIME HCL 2 GM in DEXTROSE 5 % IN WATER 100 ML IV SCH ×2 (09:56)
[2017-03-11] MEDS: VANCOMYCIN HCL 2 GM in DEXTROSE 5 % IN WATER 500 ML IV SCH ×2 (11:16)
[2017-03-11] MEDS: ENOXAPARIN SODIUM 40 MG/0.4 ML SYRG SC SCH (17:39)
--- NOTE | 2017-03-11 18:01 | PN ---
Subjective - Date and Time Seen Date: 03/11/17 Time: 10:30 Subjective Narrative: Patient seen and examined at bedside. Patient states he is feeling about the same as yesterday. No new issues or concerns. Still SOB. Easily falls asleep. Objective - Review of Systems Generalized/Overall Review: Reports: Fatigue EENTM: Reports: No Symptoms Reported Respiratory: Reports: Cough, Shortness of Breath Cardiac: Reports: No Symptoms Reported. Denies: Chest Pain Abdominal: Reports: No Symptoms Reported Genitourinary Symptoms: Reports: No Symptoms Reported Musculoskeletal Complaints: Reports: No Symptoms Reported Neurological: Reports: No Symptoms Reported Skin: Reports: No Symptoms Reported Endocrine: Reports: No Symptoms Reported Misc: All systems neg except as marked - Vitals Vitals: Last Vital Signs Temp 36.6 C 03/11/17 14:27 Pulse 92 03/11/17 14:27 Resp 23 H 03/11/17 14:27 BP 115/74 03/11/17 14:27 Pulse Ox 96 03/11/17 14:27 - Abnormal Lab Findings Abnormal Lab Findings: Abnormal Lab Results 03/11/17 03/11/17 Range/Units 05:00 05:00 Neutrophils % (Manual) 85 H (42-75) % Lymphocytes % (Manual) 9 L (20-51) % Immature Granulocytes 3 H (0-1) Neutrophils # (Manual) 6.5 H (1.3-6.0) K/mm3 Lymphocytes # (Manual) 0.7 L (1.5-3.5) k/mm3 BUN/Creatinine Ratio 25.9 H (9.0-21.6) Random Glucose 158 H (70-110) mg/dL AST 112 H (0-48) U/L ALT 172 H (19-67) U/L Albumin 2.6 L (3.4-5.0) gm/dl - Exam Constitutional: Present: Alert, Oriented x3, Cooperative, No distress, Morbidly obese ENT Exam: Present: hearing grossly normal, moist mucous membranes Respiratory: Present: no respiratory distress, no accessory muscle use, rhonchi , other - Bilateral rhonchi, especially at bases Cardiovascular/Chest: Present: other - Difficult to thoroughly assess secondary to body habitus; however, RRR and no murmurs noted Abdomen: Present: soft, nontender, obese Extremity: Present: normal inspection Skin Exam: Present: warm/dry, no cyanosis Neurologic: Present: alert, normal mood/affect, oriented x 3 Appearance: Present: appropriate appearance, appropriate insight Eye contact: Present: cooperative, good eye contact Thoughts: Present: normal thought pattern, no apparent hallucination Assessment/Plan Plan Narrative: Change to PO antibiotics. Change to PO steroids. Restart doxycycline (continue hydroxychloroquine) for chronic Q fever. Continue BiPAP at all times while sleeping, even while napping during the day. Patient likely has obesity hypoventilation syndrome. Patient may benefit from transfer to a facility with cardiology and pulmonology services if no improvement over the next 24-48 hours. Patient may also benefit from a right heart cath for further evaluation. - Problems/Diagnosis (1) Morbid obesity Problem: Acute (2) Obesity hypoventilation syndrome Problem: Acute (3) COPD exacerbation Problem: Acute (4) Hypoxemia Problem: Acute (5) Respiratory failure Problem: Acute Qualifiers: Chronicity: acute Respiratory failure complication: hypoxia Qualified Code(s): J96.01 - Acute respiratory failure with hypoxia (6) Sleep apnea Problem: Chronic Qualifiers: Sleep apnea type: unspecified type Qualified Code(s): G47.30 - Sleep apnea , unspecified (7) Pneumonia Problem: Acute Qualifiers: Pneumonia type: due to unspecified organism Laterality: unspecified laterality Lung location: unspecified part of lung Qualified Code(s): J18.9 - Pneumonia, unspecified organism
[2017-03-11] MEDS: TAMSULOSIN HCL 0.4 MG CAP.SR.24H PO SCH (18:38)
[2017-03-11] MEDS: DOXYCYCLINE HYCLATE 100 MG TABLET PO SCH (20:45)
[2017-03-11] MEDS: CEFDINIR 300 MG CAPSULE PO SCH (20:45)
[2017-03-11] MEDS: hydrOXYzine HCL 25 MG TABLET PO SCH (20:46)
[2017-03-11] MEDS ORDERED: ALBUTEROL SULFATE 2.5 MG/3 ML VIAL.NEB IH ONE ×2 (21:43→21:45)
[2017-03-11] MEDS ORDERED: ALBUTEROL SULFATE/IPRATROPIUM 3 ML NEBU IH PRN (22:02)
[2017-03-12] MEDS: ALBUTEROL SULFATE/IPRATROPIUM 3 ML NEBU IH SCH ×3 (05:50→14:35)
[2017-03-12] MEDS: INSULIN REGULAR, HUMAN 100 UNITS/ML VIAL SC SCH ×2 (06:48→11:21)
[2017-03-12] MEDS ORDERED: AZITHROMYCIN 250 MG TABLET PO SCH (09:00)
[2017-03-12] MEDS ORDERED: predniSONE 20 MG TABLET PO SCH (09:00)
[2017-03-12] MEDS: OXYBUTYNIN CHLORIDE 5 MG TABLET PO SCH (09:59)
[2017-03-12] MEDS: metFORMIN HCL 500 MG TABLET PO SCH (09:59)
[2017-03-12] MEDS: DOXYCYCLINE HYCLATE 100 MG TABLET PO SCH (10:00)
[2017-03-12] MEDS: SACCHAROMYCES BOULARDII 250 MG CAPSULE PO SCH (10:00)
[2017-03-12] MEDS: CEFDINIR 300 MG CAPSULE PO SCH (10:01)
[2017-03-12] MEDS: SERTRALINE HCL 100 MG TABLET PO SCH (10:02)
[2017-03-12] MEDS: HYDROXYCHLOROQUINE SULFATE 200 MG TABLET PO SCH (10:02)
[2017-03-12 10:09] VITALS: BP 110/64
[2017-03-12] MEDS ORDERED: VANCOMYCIN HCL LEVEL XX ONE (11:30)
--- NOTE | 2017-03-12 15:07 | PN ---
Subjective - Date and Time Seen Date: 03/12/17 Time: 08:45 Subjective Narrative: Patient seen and examined at bedside. Patient states he is feeling about the same as yesterday and continues to be short of breath. Overnight and this AM, patient remains hypoxic. Easily falls asleep. Objective - Review of Systems Generalized/Overall Review: Reports: Fatigue EENTM: Reports: No Symptoms Reported Respiratory: Reports: Cough, Shortness of Breath Cardiac: Reports: No Symptoms Reported Abdominal: Reports: No Symptoms Reported Genitourinary Symptoms: Reports: No Symptoms Reported Musculoskeletal Complaints: Reports: No Symptoms Reported Neurological: Reports: No Symptoms Reported Skin: Reports: No Symptoms Reported Endocrine: Reports: No Symptoms Reported Misc: All systems neg except as marked - Vitals Vitals: Last Vital Signs Temp 36.6 C 03/12/17 10:07 Pulse 78 03/12/17 14:44 Resp 22 H 03/12/17 14:44 BP 110/64 03/12/17 10:07 Pulse Ox 98 03/12/17 14:35 - Abnormal Lab Findings Abnormal Lab Findings: Abnormal Lab Results 03/12/17 Range/Units 09:21 pO2 45.8 L (83.0-108.0) mmHg HCO3 30.0 H (21.0-28.0) mmol/L Total CO2 31.3 H (19.0-24.0) mmol/L Base Excess 5.8 H (-2.0-3.0) mmol/L ABG pH 7.47 H (7.35-7.45) ABG O2 Sat (Measured) 84.5 L (94.0-98.0) % - Exam Constitutional: Present: Alert, Oriented x3, Cooperative, No distress, Morbidly obese ENT Exam: Present: hearing grossly normal, moist mucous membranes Respiratory: Present: no respiratory distress, no accessory muscle use, other - Bilateral rhonchi, most notable at bases Cardiovascular/Chest: Present: regular rate, rhythm Abdomen: Present: soft, nontender, obese Extremity: Present: normal inspection Skin Exam: Present: warm/dry Neurologic: Present: alert, oriented x 3 Eye contact: Present: cooperative Assessment/Plan Plan Narrative: ABG ordered this AM. Patient likely has obesity hypoventilation syndrome. Patient may benefit from transfer to a facility with cardiology and pulmonology services . Patient may also benefit from a right heart cath for further evaluation. This was discussed with the patient and he is agreeable to transfer. - Problems/Diagnosis (1) Morbid obesity Problem: Acute (2) Obesity hypoventilation syndrome Problem: Acute (3) COPD exacerbation Problem: Acute (4) Hypoxemia Problem: Acute (5) Respiratory failure Problem: Acute Qualifiers: Chronicity: acute Respiratory failure complication: hypoxia Qualified Code(s): J96.01 - Acute respiratory failure with hypoxia (6) Sleep apnea Problem: Chronic Qualifiers: Sleep apnea type: unspecified type Qualified Code(s): G47.30 - Sleep apnea , unspecified (7) Pneumonia Problem: Acute Qualifiers: Pneumonia type: due to unspecified organism Laterality: unspecified laterality Lung location: unspecified part of lung Qualified Code(s): J18.9 - Pneumonia, unspecified organism
--- NOTE | 2017-03-12 15:08 | DS ---
Transfer Discharge Summary - Diagnosis(s)/Problems (1) Morbid obesity Problem: Chronic (2) Obesity hypoventilation syndrome Problem: Suspected (3) COPD exacerbation Problem: Acute (4) Hypoxemia Problem: Acute (5) Respiratory failure Problem: Acute (6) Sleep apnea Problem: Chronic (7) Pneumonia Problem: Suspected - Course Description of Stay: ADMISSION DATE: 03.05.2017 TRANSFER DISCHARGE DATE: 03.12.2017 ADMISSION HPI BY SURAJ SAMANO: Pt is a 66 year old male with a PMH significant for UTI, nonHodgkin lymphoma, PTSD, morbid obesity, Pt presented to the ER this evening with complaints of fever and confusion. Over the last month patient was inpatient at a [place] mental facility for PTSD. On 02/28 started fever up to 102*F and URI symptoms, he was also confused and fell once. He was started on Levaquin for presumed pneumonia. Friday was transferred to the ER for medical evaluation. Per his he has also had intermittent vomiting and diarrhea. Yesterday 03/04/17, he was discharged home. Flu screen was negative. Of note the patient was diagnosed with Non Hodgkins lymphoma in 12/2015 and treated with five months of chemo as well as has had Q virus and Bartonelis. Per pt was home for less than 12 hours had poor appetite, seemed "out of it", dizzy, more lethargic than normal. Pt has not had any of his medications since yesterday morning as they were not given to them at discharge. In the ER work up revealed: D-dimer was elevated, CT Chest was completed per protocol which was negative for PE, RUL and bilateral lower lobe atelectisis vs PN present. All other lab work was essentially negative. Pt was also found to be hypoxic at 83% on RA, following an albuterol breathing treatment pt was still noted to be hypoxic at 85%, he was placed on O2 and this quickly resolved. Pt will be admitted to observation for further work up and treatment of lethargy, hypoxia with presumed PN and UTI. HOSPITAL COURSE: Patient admitted for acute hypoxic respiratory failure and pneumonia. He was treated with IV antibiotics with minimal improvement. He continued to remain hypoxic and thus, was ultimately transferred to [facility] in [place] for further evaluation by cardiology and pulmonary services which were not available here at our facility. RADIOLOGY: Chest x-ray on 03/05/2017 showed: No focal consolidation. Suggestion of lower lung peribronchial thickening; correlate for bronchitis. Head CT without contrast on 03/05/2017 showed: No acute intracranial hemorrhage or mass effect. Left ethmoid sinus disease. CTA of the chest with PE protocol on 03/05/2017 showed: Large body habitus. No evidence for pulmonary embolus. Patchy densities within the basal portion of the right upper lobe and both lower lobes, which may reflect atelectasis and/or pneumonia. Tiny amount of fluid in the fissures. TTE on 03/06/2017 showed: Left ventricle: Normal size. Mild concentric LVH. Ejection fraction 45-50%. Regional wall motion abnormalities cannot be excluded due to limited physical visualization. Right ventricle: Normal size. Wall thickness. Atria: Left atrial size is normal. Right atrial size is normal. Mitral valve: Possible diastolic dysfunction. No evidence of mitral valve prolapse. No mitral valve stenosis. No mitral regurgitation noted. Tricuspid valve: Tricuspid valve not well visualized, but is grossly normal. No tricuspid regurgitation. Aortic valve: Aortic valve opens well. No aortic regurgitation is present. Pulmonic valve: Pulmonic valve not well visualized. No pulmonic valvular regurgitation. Great vessels: Borderline aortic root dilatation. Pericardium/pleural: There is no pericardial effusion. Chest x-ray on 03/09/2017 showed: Interval worsening aeration with diffuse reticular and groundglass opacities, concerning for underlying pulmonary edema or infection. Procedures Performed: none - Results and Findings Results and Findings: Laboratory Results - last 24 hr 03/12/17 09:21 pCO2 42.0 pO2 45.8 L HCO3 30.0 H Total CO2 31.3 H Base Excess 5.8 H ABG pH 7.47 H ABG O2 Sat (Measured) 84.5 L - Medications Medications: Active Medications Acetaminophen (Tylenol) 650 mg PO Q6H PRN PRN Reason: Mild pain Stop: 04/09/17 04:48 Last Admin: 03/10/17 04:56 Dose: 650 mg Albuterol/Ipratropium (Duoneb 2.5-0.5mg/3ml Soln) 3 ml IH QIDRT [facility] Stop: 04/06/17 11:01 Last Admin: 03/12/17 14:35 Dose: 3 ml Cefdinir (Omnicef) 300 mg PO BID [facility] PRN Reason: Protocol Stop: 04/10/17 21:01 Last Admin: 03/12/17 10:01 Dose: 300 mg Doxycycline Hyclate (Vibratab) 100 mg PO BID [facility] PRN Reason: Protocol Stop: 04/10/17 21:01 Last Admin: 03/12/17 10:00 Dose: 100 mg Enoxaparin Sodium (Lovenox) 40 mg SC Q24H CHIP Stop: 04/06/17 16:31 Last Admin: 03/11/17 17:39 Dose: 40 mg Ergocalciferol (Calciferol) 50,000 units PO Q7D CHIP Stop: 04/05/17 09:01 Last Admin: 03/06/17 09:24 Dose: 50,000 units Hydroxychloroquine Sulfate (Plaquenil) 200 mg PO BID [facility] Stop: 04/05/17 09:01 Last Admin: 03/12/17 10:02 Dose: 200 mg Hydroxyzine HCl (Atarax) 25 mg PO HS CHIP Stop: 04/09/17 21:01 Last Admin: 03/11/17 20:46 Dose: 25 mg Insulin Human Regular (Humulin R) 0 units SC ACHSINS [facility] PRN Reason: Protocol Stop: 04/05/17 12:01 Last Admin: 03/12/17 11:21 Dose: Not Given Metformin HCl (Glucophage) 500 mg PO BIDWM [facility] Stop: 04/08/17 09:01 Last Admin: 03/12/17 09:59 Dose: 500 mg Oxybutynin Chloride (Ditropan) 5 mg PO BID [facility] Stop: 04/05/17 09:01 Last Admin: 03/12/17 09:59 Dose: 5 mg Prednisone (Prednisone) 40 mg PO DAILY CHIP Stop: 04/11/17 09:01 Last Admin: 03/12/17 09:58 Dose: 40 mg Saccharomyces Boulardii (Florastor) 250 mg PO BID [facility] Stop: 04/05/17 11:01 Last Admin: 03/12/17 10:00 Dose: 250 mg Sertraline HCl (Zoloft) 100 mg PO BID [facility] Stop: 04/05/17 09:01 Last Admin: 03/12/17 10:02 Dose: 100 mg Tamsulosin HCl (Flomax) 0.4 mg PO DAILY@1900 [facility] Stop: 04/05/17 19:01 Last Admin: 03/11/17 18:38 Dose: 0.4 mg Discontinued Medications Albuterol Sulfate (Albuterol Sulfate 2.5 Mg/3 Ml) 2.5 mg IH ONCE ONE Stop: 03/05/17 12:30 Last Admin: 03/05/17 12:30 Dose: 2.5 mg Albuterol Sulfate (Albuterol Sulfate 2.5 Mg/3 Ml) 2.5 mg IH ONCE ONE Stop: 03/11/17 21:46 Last Admin: 03/11/17 21:45 Dose: 2.5 mg Albuterol/Ipratropium (Duoneb 2.5-0.5mg/3ml Soln) 3 ml IH Q4HRT PRN PRN Reason: Wheezing Stop: 04/04/17 21:24 Last Admin: 03/05/17 21:59 Dose: 3 ml Doxycycline Hyclate (Vibratab) 100 mg PO BID CHIP Stop: 04/05/17 09:01 Last Admin: 03/06/17 09:26 Dose: 100 mg Furosemide (Lasix) 20 mg IV ONCE ONE Stop: 03/07/17 11:42 Last Admin: 03/07/17 12:02 Dose: 20 mg Furosemide (Lasix) 20 mg IV ONCE ONE Stop: 03/08/17 07:55 Last Admin: 03/08/17 08:39 Dose: 20 mg Furosemide (Lasix) 40 mg IV ONCE CHIP Stop: 03/09/17 17:00 Last Admin: 03/09/17 16:13 Dose: 40 mg Furosemide (Lasix) 40 mg IV ONCE ONE Stop: 03/09/17 18:45 Last Admin: 03/09/17 22:43 Dose: 40 mg Furosemide (Lasix) 60 mg IV ONCE ONE Stop: 03/10/17 18:01 Last Admin: 03/10/17 17:44 Dose: 60 mg Ceftriaxone Sodium 1,000 mg/ (Dextrose/Water) 100 mls @ 200 mls/hr IV ONCE ONE PRN Reason: Protocol Stop: 03/05/17 16:16 Last Admin: 03/05/17 16:29 Dose: 200 mls/hr Sodium Chloride (Sodium Chloride 0.9%) 1,000 mls @ 30 mls/hr IV .Q24H PRN PRN Reason: HYDRATION Stop: 04/04/17 23:06 Last Infusion: 03/08/17 07:53 Dose: Infused Cefepime HCl 2 gm/ Dextrose/ (Water) 100 mls @ 200 mls/hr IV Q12H CHIP PRN Reason: Protocol Stop: 04/05/17 10:46 Last Admin: 03/11/17 09:56 Dose: 200 mls/hr Levofloxacin/Dextrose 750 mg/ (Premix Bag) 150 mls @ 100 mls/hr IV Q24H CHIP PRN Reason: Protocol Stop: 04/05/17 10:46 Last Infusion: 03/09/17 12:26 Dose: Infused Vancomycin HCl 2 gm/ Dextrose/ (Water) 500 mls @ 140 mls/hr IV ONCE ONE PRN Reason: Protocol Stop: 03/06/17 15:04 Last Admin: 03/06/17 11:36 Dose: 140 mls/hr Methylprednisolone Sodium (Succinate 60 mg/ Sterile Water) 0.48 mls @ 60 mls/ hr IV Q6H CHIP Stop: 04/05/17 16:16 Last Admin: 03/09/17 04:09 Dose: 60 mls/hr Vancomycin HCl 2 gm/ Dextrose/ (Water) 500 mls @ 140 mls/hr IV Q12H CHIP PRN Reason: Protocol Stop: 04/06/17 12:01 Last Admin: 03/11/17 11:16 Dose: 140 mls/hr Methylprednisolone Sodium (Succinate 60 mg/ Sterile Water) 0.48 mls @ 60 mls/ hr IV Q8H CHIP Stop: 04/08/17 12:16 Last Admin: 03/11/17 11:16 Dose: 60 mls/hr Meloxicam (Mobic) 15 mg PO DAILY CHIP Stop: 04/05/17 09:01 Last Admin: 03/10/17 08:51 Dose: 15 mg Metformin HCl (Glucophage) 500 mg PO BIDWM CHIP Stop: 04/05/17 09:01 Last Admin: 03/06/17 09:25 Dose: 500 mg Ondansetron HCl (Zofran) 4 mg IV ONCE ONE Stop: 03/06/17 10:01 Last Admin: 03/06/17 10:22 Dose: 4 mg Rosuvastatin Calcium (Crestor) 40 mg PO HS CHIP Stop: 04/05/17 21:01 Last Admin: 03/09/17 20:28 Dose: 40 mg Trazodone HCl (Desyrel) 50 mg PO HS [facility] Stop: 04/06/17 21:01 Last Admin: 03/09/17 20:27 Dose: 50 mg Vancomycin HCl (Vancomycin Level) 1 XX ONCE ONE Stop: 03/09/17 11:31 Last Admin: 03/09/17 12:08 Dose: 1 - Disposition Disposition: Other health care facility Condition: Fair Discharge Date: 03/12/17 Discharge Time: 15:08
== END 2017-03-12 15:50 | disposition short-term general hospital (02) | DRG 189 ==
LOC: ER 11:39 → UNDOADMOB 16:14 → MS 16:14 → OBSVTOIN 03-06 10:10 → MS 03-12 17:37
PROVIDERS: ADMIT Nurse Practitioner Gerontology; ATTEND Internal Medicine
PROC: 4A033R1 Measurement of Arterial Saturation, Peripheral, Percutaneous Approach (ICD-10-PCS; principal; 2017-03-06)
PROC: 5A09357 Assistance with Respiratory Ventilation, Less than 24 Consecutive Hours, Continuous Positive Airway Pressure (ICD-10-PCS; 2017-03-06)
PROC: B246ZZZ Ultrasonography of Right and Left Heart (ICD-10-PCS; 2017-03-06)
DX: J96.01 Acute respiratory failure with hypoxia (principal); J18.9 Pneumonia, unspecified organism; I50.21 Acute systolic (congestive) heart failure; J44.1 Chronic obstructive pulmonary disease with (acute) exacerbation; J44.0 Chronic obstructive pulmonary disease with (acute) lower respiratory infection; N39.0 Urinary tract infection, site not specified; Z68.43 Body mass index [BMI] 50.0-59.9, adult; D72.825 Bandemia; E66.01 Morbid (severe) obesity due to excess calories; F43.10 Post-traumatic stress disorder, unspecified; E11.9 Type 2 diabetes mellitus without complications; Z87.891 Personal history of nicotine dependence
CPT/HCPCS: 36415; 36600; 70450; 71010; 71020; 71275; 80053; 80202; 81001; 82140; 82803; 83605; 83880; 84145; 84484; 85007; 85025; 85379; 87040; 87070; 87086; 87400; 87449; 87493; 93005; 93306; 94640; 94660; 94762; 96365; 99284; G0378

== ENCOUNTER 2017-08-19 21:01 | Emergency (ER) | payer OTHER, MEDICARE ==
[2017-08-19 21:08] VITALS: BP 125/74
--- NOTE | 2017-08-19 21:32 | ERNOTE ---
Time Seen by Provider: 08/19/17 21:20 Stated Complaint: uri symptoms Presenting Symptoms:: cough Source: patient Exam Limitations: no limitations Immunizations: IMMUNIZATION HX Immunizations Up to Date Yes History of Influenza Vaccine Yes Hx Pneumococcal Vaccination Yes Allergies/Adverse Reactions: Allergies No Known Allergies Allergy (Verified 03/06/17 04:07) Home Medications: HOME MEDICATIONS Atorvastatin Calcium 80 mg PO HS 10/19/15 [Last Taken Unknown] Sertraline HCl [Zoloft] 100 mg PO BID 10/19/15 [Last Taken Unknown] metFORMIN HCL [Glucophage] 500 mg PO BIDWM 10/19/15 [Last Taken Unknown] traZODone HCL [Trazodone HCl] 300 mg PO HS PRN 10/19/15 [Last Taken Unknown] Hydroxychloroquine Sulfate [Plaquenil] 200 mg PO BID 02/25/16 [Last Taken Unknown] Doxycycline Hyclate [Morgidox] 100 mg PO BID 03/05/17 [Last Taken Unknown] Ergocalciferol [Calciferol] 50,000 units PO Q7D 03/05/17 [Last Taken Unknown] Meloxicam [Mobic] 15 mg PO DAILY 03/05/17 [Last Taken Unknown] Oxybutynin Chloride [Ditropan] 5 mg PO BID 03/05/17 [Last Taken Unknown] Tamsulosin HCl [Flomax] 0.4 mg PO DAILY 03/05/17 [Last Taken Unknown] hydrOXYzine HCL [Atarax] 25 mg PO BID PRN 03/05/17 [Last Taken Unknown] Azithromycin 250 mg PO DAILY #4 tablet 08/19/17 [Last Taken Unknown] - History of Present Ilness Narrative: Pt has severe COPD oxygen dependent at 2L at rest and 4-5 liters with activity. For the past 3-4 days he has had increasing shortness of breath, increased sputum production and change in sputum to thicker slightly colored sputum. Timing: getting worse Severity: moderate Frequency/Possible Cause: Reports: occasional episodes - previously had bilateral pneumonia Modifying Factors - Improves: Reports: rest Modifying Factors - Worsens: Reports: activity Associated Symptoms: Reports: shortness of breath, wheezing Review of Systems - Review of Systems Constitutional: Present: recent illness, fatigue. Absent: chills EYE: Present: no symptoms reported ENT: Present: nose congestion Respiratory: Present: See HPI Cardiology: Absent: chest pain Gastrointestinal/Abdominal: Present: no symptoms reported Genitourinary: Present: no symptoms reported Musculoskeletal: Present: no symptoms reported Skin: Present: no symptoms reported Neurological: Present: no symptoms reported Endocrine: Present: no symptoms reported Hematologic/Lymphatic: Present: no symptoms reported Psych: Present: no symptoms reported - Patient's Past Medical History Patient History - Medical: Anxiety, Diabetes Type 2, Depression, Obesity, Osteoarthritis Patient History - Cardiac/Respiratory: COPD, Pneumonia, CPAP/BiPAP Home Use, Sleep Apnea Patient History - Cancer: Non Hodgkins Lymphoma Patient History - Surgical Procedures: No surgical history Patient History - Other: Chronic/Prophylactic ABX - Family History Mother Family History - Medical: Family History - Cancer: Bone Father Family History - Medical: No pertinent hx Family History - Cardiac/Respiratory: No pertinent hx Sister Family History - Medical: No pertinent hx Family History - Cardiac/Respiratory: No pertinent hx Family History - Cancer: Bone, Lung Brother Family History - Medical: Family History - Cardiac/Respiratory: Myocardial Infarction Family History - Cancer: Lung - Social History Living Situations: home Abuse History: No History of abuse Psych History: Hx of Anxiety, Hx of Depression, Hx of Psychiatric Tx Smoking Status: Never smoker Alcohol Use: none Drug Use: none - Immunizations Immunizations Up to Date: Yes Hx Pneumococcal Vaccination: Yes History of Influenza Vaccine: Yes Physical Exam - Physical Exam General Appearance: Present: wd/wn, alert, no apparent distress Head Exam: Present: normal inspection, no evidence of injury Eye Exam: Normal inspection: bilateral, PERRL: bilateral Ears, Nose, Throat: Present: normal ENT inspection Neck: Present: normal inspection, nontender Respiratory: Present: no respiratory distress, rhonchi, wheezing - occasional Cardiovascular/Chest: Present: regular rate, rhythm, no murmur Gastrointestinal/Abdominal: Present: soft, other - obese Back Exam: Present: normal inspection, normal range of motion Extremity Exam: Present: non-tender, normal range of motion Neurological Exam: Present: alert, oriented, normal mood/affect Skin Exam: Present: normal color, warm/dry Lymphatic Exam: Present: no adenopathy ED Progress - Vital Signs Vital Signs: Vital Signs 08/19/17 21:04 Temperature 36.8 C Pulse Rate 90 Respiratory 18 Rate Blood Pressure 125/74 O2 Sat by Pulse 97 Oximetry - Progress/Reassessment Chief Complaint: Upper Respiratory Symptoms Departure - Departure Clinical Impression: COPD exacerbation Disposition: Home Follow Up Needed Condition: Good Instructions: Chronic Obstructive Pulmonary Disease Exacerbation, [id number] Additional Instructions: See your regular doctor as scheduled Prescriptions: Azithromycin 250 mg PO DAILY #4 tablet
[2017-08-19 21:42] LABS: Hematocrit 40.3 % (42.0-52.0); Hemoglobin 13.3 gm/dL (13.5-18.0); Mean Cell Volume 88.6 fl (78-100); Mean Corpuscular Hemoglobin 29.2 pg (27-31); Mean Platelet Volume 8.9 fl (6.0-9.5); Neutrophil # 3.3 K/mm3 (1.3-6.0); Neutrophil % 61.2 % (42-75.0); Platelet Count 191 K/mm3 (150-450); Red Blood Count 4.55 M/mm3 (4.7-6.0); White Blood Count 5.4 K/mm3 (4.0-10.5)
[2017-08-19 21:56] LABS: Albumin * 2.9 gm/dl (3.4-5.0); Anion Gap 12.6 mmol/L (6.8-13.8); BUN/Creatinine Ratio 16.2 (9.0-21.6); Bilirubin, Total 0.2 mg/dL (0.0-1.1); Ca. Corrected For Albumin 9.2 mg/dL (8.4-10.2); Calcium * 8.6 mg/dL (7.9-10.9); Carbon Dioxide 29.3 mmol/L (24-32.6); Potassium 3.9 mmol/L (3.4-4.6); Total Protein 6.9 gm/dL (6.2-8.2)
[2017-08-19] MEDS ORDERED: AZITHROMYCIN 250 MG TABLET PO ONE (23:11)
[2017-08-19] MEDS ORDERED: ALBUTEROL SULFATE 60 PUFF INHALER IH ONE (23:12)
[2017-08-19] MEDS ORDERED: ALBUTEROL SULFATE 200 PUFF INHALER IH ONE (23:25)
[2017-08-19] MEDS ORDERED: AZITHROMYCIN 250 MG TABLET ONE (23:25)
== END 2017-08-19 23:30 | disposition home or self-care (01) ==
LOC: ER 21:01
DX: J44.1 Chronic obstructive pulmonary disease with (acute) exacerbation (principal); Z85.72 Personal history of non-Hodgkin lymphomas

== ENCOUNTER 2017-10-24 21:34 | Emergency (ER) | payer MEDICARE, OTHER ==
[2017-10-24 22:45] VITALS: BP 108/70
--- NOTE | 2017-10-24 22:51 | ERNOTE ---
Dyspnea - Date Date of Service: 10/24/17 - General Presenting Symptoms: shortness of breath Time Seen by Provider: 10/24/17 21:52 Source: patient, family - Immun/Allergies/Home Medications Immunizations: IMMUNIZATION HX Immunizations Up to Date Yes History of Influenza Vaccine No Hx Pneumococcal Vaccination Yes Allergies/Adverse Reactions: Allergies No Known Allergies Allergy (Verified 10/24/17 21:55) Home Medications: HOME MEDICATIONS Atorvastatin Calcium 80 mg PO HS 10/19/15 [Last Taken Unknown] Sertraline HCl [Zoloft] 100 mg PO BID 10/19/15 [Last Taken Unknown] metFORMIN HCL [Glucophage] 100 mg PO BID 10/19/15 [Last Taken Unknown] traZODone HCL [Trazodone HCl] 300 mg PO HS PRN 10/19/15 [Last Taken Unknown] Ergocalciferol [Calciferol] 50,000 units PO Q7D 03/05/17 [Last Taken Unknown] Meloxicam [Mobic] 15 mg PO DAILY 03/05/17 [Last Taken Unknown] Oxybutynin Chloride [Ditropan] 5 mg PO BID 03/05/17 [Last Taken Unknown] Tamsulosin HCl [Flomax] 0.4 mg PO DAILY 03/05/17 [Last Taken Unknown] hydrOXYzine HCL [Atarax] 25 mg PO BID PRN 03/05/17 [Last Taken Unknown] - History of Present Illness Narrative: This is a 67-year-old gentleman with a history of non-Hodgkin's lymphoma and pulmonary hypertension who is on 2-5 L of oxygen per minute at home. The patient comes into the emergency department complaining of feeling dizzy and short of breath with exertion today. He is extremely obese and his was concerned that if he fell she would not be a ligament him back up. He has not fallen. Patient says that he is okay laying in bed but when he starts to get up and move around he becomes short of breath much quicker than usual and then he becomes dizzy. He'll sit down and the dizziness will get better within a minute or 2 as will the shortness of breath. The patient has also developed some itching and redness to his eyes, his says that he is not hearing normally, he felt like he had a "bump" in his chest earlier that lasted for a second, and multiple other complaints. These also other seems secondary to his primary concern tonight next He denies chest pain he denies nausea he denies vomiting he denies sputum production he denies pleuritic component to the pain Review of Systems - Review of Systems Constitutional: Present: fatigue, malaise EYE: Present: other ENT: Present: no symptoms reported - erythema itching Respiratory: Present: shortness of breath Cardiology: Present: other - dyspnea on exertion Gastrointestinal/Abdominal: Present: no symptoms reported Genitourinary: Present: no symptoms reported Musculoskeletal: Present: no symptoms reported Skin: Present: no symptoms reported Neurological: Present: no symptoms reported Endocrine: Present: no symptoms reported Hematologic/Lymphatic: Present: no symptoms reported Psych: Present: no symptoms reported All Other Systems: All systems neg except as marked - Patient's Past Medical History Patient History - Medical: Anxiety, Diabetes Type 2, Depression, Obesity, Osteoarthritis Patient History - Cardiac/Respiratory: COPD, Pneumonia, CPAP/BiPAP Home Use, Sleep Apnea Patient History - Cancer: Non Hodgkins Lymphoma Patient History - Surgical Procedures: Total Knee Replacement, Other Patient History - Other: Chronic/Prophylactic ABX - Family History Mother Family History - Medical: Family History - Cancer: Bone Father Family History - Medical: No pertinent hx Family History - Cardiac/Respiratory: No pertinent hx Sister Family History - Medical: No pertinent hx Family History - Cardiac/Respiratory: No pertinent hx Family History - Cancer: Bone, Lung Brother Family History - Medical: Family History - Cardiac/Respiratory: Myocardial Infarction Family History - Cancer: Lung - Social History Living Situations: home Abuse History: No History of abuse Psych History: Hx of Anxiety, Hx of Depression, Hx of Psychiatric Tx Smoking Status: Former smoker Alcohol Use: none Drug Use: none - Immunizations Immunizations Up to Date: Yes Hx Pneumococcal Vaccination: Yes History of Influenza Vaccine: No Physical Exam - Physical Exam General Appearance: Present: wd/wn, alert, no apparent distress, other - morbidly obese male laying in bed in no apparent distress Head Exam: Present: normal inspection, no evidence of injury Eye Exam: Normal inspection: bilateral, Sclera injection: bilateral Ears, Nose, Throat: Present: normal ENT inspection, normal pharynx Neck: Present: normal inspection, nontender Respiratory: Present: no respiratory distress, normal breath sounds, no accessory muscle use, lungs clear Cardiovascular/Chest: Present: regular rate, rhythm, no murmur, normal peripheral pulses Gastrointestinal/Abdominal: Present: normal bowel sounds, nontender, nondistended, soft, no organomegaly, other Back Exam: Present: normal inspection, no CVA tenderness Extremity Exam: Present: normal inspection, non-tender, no edema Neurological Exam: Present: alert, oriented, normal mood/affect, no motor/ sensory deficits, other - able to walk with a normal gait Skin Exam: Present: normal color, warm/dry Lymphatic Exam: Present: no adenopathy ED Progress - Results and Orders Patient's Lab Results:: I have reviewed the patient's lab results. - Vital Signs Patient's Vital Signs:: I have reviewed the patient's vital signs. Vital Signs: Vital Signs 10/24/17 10/24/17 10/24/17 21:40 22:15 22:44 Temperature 36.1 C L Pulse Rate 72 71 70 Respiratory 18 16 19 Rate Blood Pressure 129/72 129/76 108/70 O2 Sat by Pulse 95 100 98 Oximetry - X-Ray X-Ray #1 X-Ray: chest Interpretation: Interp. by me X-ray Comments: Patient has ashaggy bilateral perihilar infiltrates. These are unchanged from previously. This likely represents vascular prominence in the setting of pulmonary hypertension - Progress/Reassessment Chief Complaint: Dyspnea Progress:: Improved Progress Note-Subjective: 10/24/17 23:01 The patient was walked through the emergency department and around. He felt dyspneic. His pulse ox without oxygen remained 95%. Departure Clinical Impression: Dyspnea - Departure Disposition: Home self-care Condition: Fair Instructions: Vertigo, [id number] Additional Instructions: As we discussed all of the tests and studies done here in the ER are essentially normal or unchanged. The most reassuring thing that I have seen him walking around the ER without oxygen on and having his oxygen level stayed at 95%. This is a very good sign. All you call your family doctor, tell them you were seen in the ER, and set up a follow-up appointment. Next Certainly if you develop new concerning symptoms she should return to the ER
[2017-10-24 23:00] LABS: Hematocrit 39.4 % (42.0-52.0); Hemoglobin 13.2 gm/dL (13.5-18.0); Mean Cell Volume 87.9 fl (78-100); Mean Corpuscular Hemoglobin 29.5 pg (27-31); Mean Corpuscular Hgb Conc 33.5 g/dl (32-36); Mean Platelet Volume 8.8 fl (6.0-9.5); Neutrophil # 3.2 K/mm3 (1.3-6.0); Neutrophil % 57.7 % (42-75.0); Platelet Count 211 K/mm3 (150-450); Red Blood Count 4.48 M/mm3 (4.7-6.0); Red Cell Distribution Width 12.9 % (11.5-14.0); White Blood Count 5.5 K/mm3 (4.0-10.5)
[2017-10-24 23:22] LABS: ALT 24 U/L (19-67); AST 24 U/L (0-48); Albumin * 3.2 gm/dl (3.4-5.0); Alkaline Phosphatase * 74 U/L (50-170); Anion Gap 13.4 mmol/L (6.8-13.8); BNP * 176 pg/mL (5-350); BUN/Creatinine Ratio 17.1 (9.0-21.6); Bilirubin, Total 0.3 mg/dL (0.0-1.1); Blood Urea Nitrogen 20 mg/dL (6-23); Ca. Corrected For Albumin 9.2 mg/dL (8.4-10.2); Calcium * 8.9 mg/dL (7.9-10.9); Chloride 107 mmol/L (97-106); Glucose * 94 mg/dL (70-110); Potassium 4.4 mmol/L (3.4-4.6); Sodium 144 mmol/L (132-142); Total Protein 7.2 gm/dL (6.2-8.2)
[2017-10-24 23:23] LABS: Troponin I Less than 0.017 ng/ml (0.00-0.10)
== END 2017-10-24 23:51 | disposition home or self-care (01) ==
LOC: ER 21:34
DX: R06.00 Dyspnea, unspecified (principal); E11.9 Type 2 diabetes mellitus without complications; M19.90 Unspecified osteoarthritis, unspecified site; J44.9 Chronic obstructive pulmonary disease, unspecified; Z85.72 Personal history of non-Hodgkin lymphomas; F41.8 Other specified anxiety disorders

== ENCOUNTER 2017-11-11 17:29 | Emergency (ER) | payer MEDICARE, OTHER ==
--- NOTE | 2017-11-11 18:10 | ERNOTE ---
Dyspnea - General Presenting Symptoms: shortness of breath Time Seen by Provider: 11/11/17 17:48 Source: patient, family Exam Limitations: no limitations - Immun/Allergies/Home Medications Immunizations: IMMUNIZATION HX Immunizations Up to Date Yes History of Influenza Vaccine Yes Hx Pneumococcal Vaccination Yes Allergies/Adverse Reactions: Allergies No Known Allergies Allergy (Verified 11/11/17 17:37) Home Medications: HOME MEDICATIONS Atorvastatin Calcium 80 mg PO HS 10/19/15 [Last Taken Unknown] Sertraline HCl [Zoloft] 100 mg PO BID 10/19/15 [Last Taken Unknown] metFORMIN HCL [Glucophage] 100 mg PO BID 10/19/15 [Last Taken Unknown] traZODone HCL [Trazodone HCl] 300 mg PO HS PRN 10/19/15 [Last Taken Unknown] Ergocalciferol [Calciferol] 50,000 units PO Q7D 03/05/17 [Last Taken Unknown] Meloxicam [Mobic] 15 mg PO DAILY 03/05/17 [Last Taken Unknown] Oxybutynin Chloride [Ditropan] 5 mg PO BID 03/05/17 [Last Taken Unknown] Tamsulosin HCl [Flomax] 0.4 mg PO DAILY 03/05/17 [Last Taken Unknown] hydrOXYzine HCL [Atarax] 25 mg PO BID PRN 03/05/17 [Last Taken Unknown] Nitrofurantoin/Nitrofuran Mac [Macrobid] 100 mg PO Q12H #20 cap 11/11/17 [Last Taken Unknown] - History of Present Illness Narrative: Patient has a history of pulmonary hypertension is on home O2. He reports that the last couple of days he has had a couple episodes of dizziness and shortness of breath. It seems that those episodes occured when he had taken his O2 off and was walking. He was seen in the ER two weeks ago for similar symptoms. His reports that he also was recently diagnosed with dementia and she is working on getting him into the [facility] as it gets hard to take care of him at home. He also felt 'under the weather' for a few days, has a history of UTI's and increased incontinence in the last few days Review of Systems - Review of Systems Constitutional: Present: malaise. Absent: recent illness, fever EYE: Present: see HPI, blurred vision ENT: Absent: nose congestion, sore throat Respiratory: Present: shortness of breath Cardiology: Absent: chest pain Gastrointestinal/Abdominal: Absent: nausea, vomiting, abdominal pain Genitourinary: Present: other - incontince chronically, worse last couple of days Musculoskeletal: Absent: back pain Skin: Absent: rash Neurological: Present: See HPI, dizziness/light-headedness, weakness - generalized - Patient's Past Medical History Patient History - Medical: Anxiety, Diabetes Type 2, Depression, Obesity, Osteoarthritis, UTI'S Patient History - Cardiac/Respiratory: COPD, Pneumonia, CPAP/BiPAP Home Use, Sleep Apnea, Other - pulmonary hypertension Patient History - Cancer: Non Hodgkins Lymphoma - in remission Patient History - Surgical Procedures: No surgical history Patient History - Other: Chronic/Prophylactic ABX - Family History Mother Family History - Medical: Family History - Cancer: Bone Father Family History - Medical: No pertinent hx Family History - Cardiac/Respiratory: No pertinent hx Sister Family History - Medical: No pertinent hx Family History - Cardiac/Respiratory: No pertinent hx Family History - Cancer: Bone, Lung Brother Family History - Medical: Family History - Cardiac/Respiratory: Myocardial Infarction Family History - Cancer: Lung - Social History Living Situations: home Abuse History: No History of abuse Psych History: Hx of Anxiety, Hx of Depression, Hx of Psychiatric Tx - Immunizations Immunizations Up to Date: Yes Hx Pneumococcal Vaccination: Yes History of Influenza Vaccine: Yes Physical Exam - Physical Exam General Appearance: Present: wd/wn, alert, no apparent distress, obese Head Exam: Present: normal inspection Eye Exam: Normal inspection: bilateral, PERRL: bilateral Ears, Nose, Throat: Present: normal pharynx Respiratory: Present: no respiratory distress, no accessory muscle use, lungs clear, decreased breath sounds Cardiovascular/Chest: Present: regular rate, rhythm, no murmur Gastrointestinal/Abdominal: Present: normal bowel sounds, nontender, nondistended, soft, other - obese Neurological Exam: Present: alert, oriented, normal mood/affect Skin Exam: Present: normal color, warm/dry ED Progress - Results and Orders Patient's Lab Results:: I have reviewed the patient's lab results. - Vital Signs Patient's Vital Signs:: I have reviewed the patient's vital signs. Vital Signs: Vital Signs 11/11/17 17:31 Temperature 36.8 C Pulse Rate 79 Respiratory 14 Rate Blood Pressure 113/66 O2 Sat by Pulse 96 Oximetry - X-Ray X-Ray #1 X-Ray: chest - cardiomegalie, chronic fibrotic changes seem unchanged from prior CXR Interpretation: Interp. by me - Progress/Reassessment Chief Complaint: Dyspnea Progress Note-Subjective: 11/11/17 19:05 patient UCS consistent with UTI last culture E. coli (sensitive to macrobid) and proteus (ESBL), no signs of sepsis last culture: no growth will treat with macrobid and wait for culture Departure Clinical Impression: UTI (urinary tract infection) Qualifiers: Urinary tract infection type: acute cystitis Hematuria presence: without hematuria Qualified Code(s): N30.00 - Acute cystitis without hematuria - Departure Disposition: Home self-care Condition: Good Instructions: Urinary Tract Infection, Adult, [id number] Additional Instructions: call your doctor for follow up Prescriptions: Nitrofurantoin/Nitrofuran Mac [Macrobid] 100 mg PO Q12H #20 cap
[2017-11-11 18:20] LABS: Hematocrit 39.5 % (42.0-52.0); Hemoglobin 13.3 gm/dL (13.5-18.0); Mean Cell Volume 87.2 fl (78-100); Mean Corpuscular Hemoglobin 29.4 pg (27-31); Mean Corpuscular Hgb Conc 33.7 g/dl (32-36); Mean Platelet Volume 8.5 fl (6.0-9.5); Neutrophil # 2.8 K/mm3 (1.3-6.0); Neutrophil % 57.5 % (42-75.0); Platelet Count 221 K/mm3 (150-450); Red Blood Count 4.53 M/mm3 (4.7-6.0); Red Cell Distribution Width 12.5 % (11.5-14.0); White Blood Count 4.9 K/mm3 (4.0-10.5)
[2017-11-11 18:39] LABS: Anion Gap 11.5 mmol/L (6.8-13.8); BUN/Creatinine Ratio 21.1 (9.0-21.6); Bilirubin, Total 0.2 mg/dL (0.0-1.1); Ca. Corrected For Albumin 8.9 mg/dL (8.4-10.2); Calcium * 8.4 mg/dL (7.9-10.9); Carbon Dioxide 28.7 mmol/L (24-32.6); Potassium 4.2 mmol/L (3.4-4.6)
[2017-11-11 18:41] LABS: Urine Bilirubin Negative (NEGATIVE); Urine Blood 25 /ul (NEGATIVE); Urine Ketone Negative (NEGATIVE); Urine Protein 15 mg/dL (NEGATIVE); Urine Specific Gravity >=1.030 SP.GR. (1.005-1.030); Urine Urobilinogen Normal (NORMAL); Urine pH 5.5 pH (5.0-7.0)
[2017-11-11 18:58] LABS: Urine Nitrite Positive (NEGATIVE)
[2017-11-11 18:59] LABS: Urine Appearance Clear; Urine Bacteria 3+; Urine Color Yellow; Urine RBC 0-5 /hpf (0-5); Urine WBC 25-50 /hpf (0-5)
[2017-11-11] MEDS ORDERED: NITROFURANTOIN/NITROFURAN MAC 100 MG CAPSULE PO ONE (19:37)
[2017-11-11] MEDS ORDERED: NITROFURANTOIN/NITROFURAN MAC 100 MG CAPSULE ONE (20:06)
[2017-11-11 21:26] VITALS: BP 114/68
== END 2017-11-11 20:25 | disposition home or self-care (01) ==
LOC: ER 17:29
DX: F41.9 Anxiety disorder, unspecified; M19.90 Unspecified osteoarthritis, unspecified site; N30.00 Acute cystitis without hematuria; F32.9 Major depressive disorder, single episode, unspecified; E11.9 Type 2 diabetes mellitus without complications